=== PATIENT | male | born 1975 | race Caucasian/White ===

== ENCOUNTER → 2016-07-05 | Outpatient (CLI) | payer MEDICARE, OTHER ==
[2016-07-05 12:11] VITALS: BP 121/83; PULSE 104; RESP 16; TEMP 97.9
--- NOTE | 2016-07-05 13:04 | P.PN ---
Progress Note - Text Patient returns for followup for chronic back pain with radiation to both legs. Patient last underwent JAKE in 2014 with good relief Patient continues on fentanyl patch and Percocet medications for pain with good relief, using roughly 2-3 times per day on most days but does not take the medication when he drives. Patient denies adverse drug effects from medications. Today, pt denies new-onset weakness, bowel/bladder incontinence, or any other signs or symptoms of cauda equina syndrome. There are no signs of acute intoxication, and no indications of medication diversion or overuse. In addition to above, 13-point review of systems is also negative for chest pain , shortness of breath, changes in vision, changes in hearing, new onset weakness , abdominal pain, diarrhea, extreme fatigue, malaise, fever, skin changes, homicidal or suicidal ideation, or bowel or bladder incontinence. Vital Signs: Reviewed in EMR Gen: WDWN, AAOx3, NAD HEENT: NCAT, EOMI, hearing grossly normal Pulm: resp unlabored Abd: soft, NT, ND Neck: supple, trachea midline ROM in flexion lumbar spine: reduced due to pain ROM in extension lumbar spine: reduced due to pain Lumbar paravertebral tenderness: + Facet loading: ++ bilateral SI joint tenderness: negative Mauricio's test: negative Straight leg raise: + RLE at 20 degrees Neuro: CN II-XII grossly intact, muscle strength lower extremities reduced bilateral LEs Imaging: Reviewed in EMR Assessment: 1. lumbar disc herniation 2. lumbar radiculopathy 3. lumbar DDD Plan: 1. Explanation: Opioid and psychological risk scores were reviewed. Diagnoses , prognoses, and multiple treatment options including but not limited to physical therapy, interventional therapies, adjuvant medical therapies, narcotic medication therapies, and surgery were discussed with the patient and all questions were answered to the patient's satisfaction. 2. Opioid agreement: Patient has previously signed narcotic agreement, and was orally counseled to not overuse, abuse, divert, or cell medications, and to take them as prescribed by only 1 healthcare provider. The patient was also counseled to store opioid medications in a safe and preferably locked location. Patient was also counseled against driving while using narcotic medications and also to not use alcohol or any illicit or recreational drugs. The patient verbalized understanding that lack of compliance with any of the above and likely result in failure to renew narcotic prescriptions, possible discharge from the clinic, and possible legal ramifications thereafter if indicated. 3. Counseling: The patient was counseled extensively on BODY MASS INDEX, EXERCISE. Specifically, the patient was instructed regarding the importance of weight loss and exercise in the context of both chronic pain and overall health. 4. Procedures: LESI 4-6 weeks (patient is now only on 162 mg of aspirin, no longer on Coumadin for previous history of PE) 5. Consultations: None 6. Investigations: UDS today (last UDS showed fentanyl, negative for oxycodone , patient states that he last used Percocet two days ago) 7. Medications: fentanyl patch, Percocet (reduced to #90), Neurontin x 2 months 8. Disposition: f/u for re-eval two months PQRS measures: 1-Patient's medications are documented in the chart. 2-Tobacco use is negative 3-Patient has not had a pneumococcal vaccine. 4-Advanced care planning discussed, patient unable to give. 5-Opioid contract signed with the patient. 6-Pain positive, follow-up visit or procedure scheduled 7-Patient's blood pressure measured and documented, within normal limits. 8-Patient's weight was measured, and body mass index ABOVE the normal limits, and counseling was done. Patient instructed to follow up with PCP. 9-Patient WAS NOT identified as an unhealthy alcohol user.
== END | disposition home or self-care (01) ==
LOC: PNWHC3 11:52
PROVIDERS: ATTEND Anesthesiology
DX: M51.26 Other intervertebral disc displacement, lumbar region (principal); M54.16 Radiculopathy, lumbar region; M51.36 Other intervertebral disc degeneration, lumbar region; Z79.899 Other long term (current) drug therapy
CPT/HCPCS: 80307; G0463; 80346; 80354; 99211

== ENCOUNTER 2016-08-24 07:42 | Day surgery (SDC) | payer MEDICARE, OTHER ==
[2016-08-22 10:03] VITALS: BMI 26.0
[~2016-08-24 07:42] MED LIST: LACTATED RINGERS 1,000 ML IV SCH
[2016-08-24] MEDS ORDERED: LIDOCAINE 1% 20 ML VIAL (10MG/ML) FOR IV START INTRADERMA ONE (08:00)
[2016-08-24 08:08] VITALS: RESP 18; TEMP 97.7
[2016-08-24] MEDS ORDERED: TRIAMCINOLONE ACETONIDE 40 MG/ML 1 ML VIAL ONE (08:21)
[2016-08-24] MEDS ORDERED: MIDAZOLAM 2 MG/2 ML VIAL ONE (08:21)
[2016-08-24] MEDS ORDERED: IOHEXOL 180 MG/ML 1 ML ML ONE (08:21)
[2016-08-24] MEDS ORDERED: BUPIVACAINE (PF) 0.5% 30 ML VIAL ONE (08:21)
[2016-08-24] MEDS ORDERED: fentaNYL (PF) 50 MCG/ML 2 ML AMP ONE (08:21)
[2016-08-24] MEDS ORDERED: IV FLUID CONTINUATION 1,000 ML IV ONE (08:47)
--- NOTE | 2016-08-24 08:57 | P.PCN ---
Date of Procedure: 08/24/16 Surgeon: Vinny Kraft Pathology: none sent Condition: stable Disposition: PACU Description of Procedure: PREOPERATIVE DIAGNOSIS: 1-Lumbar radiculitis. POSTOPERATIVE DIAGNOSIS: 1-Lumbar radiculitis. PROCEDURE 1. Lumbar epidural steroid injection under fluoroscopic guidance at the L4-L5 level. 2. Lumbar epidurogram. ANESTHESIA: Local with 1% lidocaine; IV sedation with Versed/fentanyl. EBL: Minimal PROCEDURE INDICATION: The patient with low back pain and radiculitis symptoms unresponsive to conservative treatment. Fluoroscopy was used to optimize visualization of the needle placement and to maximize safety. Patient uses only baby aspirin 81 mg twice daily as a blood thinner due to his history of DVT and PE. PROCEDURE DESCRIPTION / TECHNIQUE: The patient was seen and identified in the preoperative area. Risks, benefits, complications, and alternatives were discussed with the patient, including but not limited to bleeding, infection, nerve damage, allergic reactions to medications, and incomplete pain relief. The patient agreed to proceed with the procedure and signed the consent after all questions were answered. IV was started, and vital signs were stable. Patient was taken to the OR and time out was completed to confirm patient position, procedure, laterality of pain, and allergies. The patient was placed in the prone position on procedure table and a pillow was placed under the abdomen to reduce lumbar lordosis. The lumbosacral area was prepped and draped in the usual sterile fashion. Critical pause was taken. Vital signs were closely monitored during the procedure. Conscious sedation was used during the procedure to decrease patients anxiety. Using anterior-posterior fluoroscopy, the L4-L5 interlaminar space was identified and the skin over this site was marked and then infiltrated with 1% lidocaine subcutaneously in a right paramedian fashion. Subsequently, a 20- gauge 3.5" Tuohy epidural needle was inserted and advanced toward the epidural space using the Loss of resistance technique and guided by AP and lateral fluoroscopy. The correct needle position in the epidural space was verified with the injection of 2 mL of the water soluble contrast dye Omnipaque 300 contrast and observing an excellent epidurogram with the epidural spread of the dye, after negative aspiration for blood and CSF and in the absence of paresthesias. Again after negative aspiration, a 8 ml mixture containing 80 mg of Kenalog and 4 ml of preservative free Normal Saline, and 2 ml of preservative free lidocaine 1% solution was injected and a washout of epidurogram was seen. Needle was withdrawn intact, skin was cleansed, and bandages were applied. COMPLICATIONS: None COMMENTS: DISPOSITION / PLANS: The patient was placed in a supine position and transferred to the recovery area in a stable condition for observation. There was no evidence of lower extremity motor or sensory deficit after the procedure. Patient was discharged from the recovery room after meeting discharge criteria. Home discharge instructions were given to the patient by the staff. The patient was reexamined prior to discharge and there were no issues. The patient will schedule a follow up procedure in approximately 4 weeks.
[2016-08-24 09:06] VITALS: BP 107/73; PULSE 62
--- NOTE | 2016-08-24 11:52 | FL ---
EXAMINATION TYPE: FL guided pain mgmt statistic DATE OF EXAM: 08/24/2016 8:42 AM HISTORY: Flouroscopy time 8 seconds of fluoroscopy provided. IMPRESSION: 1. Fluoroscopy time.
== END 2016-08-24 09:23 | disposition home or self-care (01) ==
LOC: ORPAIN 07:42
PROVIDERS: ATTEND Anesthesiology
DX: G89.29 Other chronic pain (principal); M54.16 Radiculopathy, lumbar region; I10 Essential (primary) hypertension; E78.5 Hyperlipidemia, unspecified; Z88.5 Allergy status to narcotic agent; Z79.891 Long term (current) use of opiate analgesic; Z79.82 Long term (current) use of aspirin; Z79.899 Other long term (current) drug therapy
CPT/HCPCS: 62323; 99152; J2250; J3301; Q9965; J3010

== ENCOUNTER → 2016-09-05 | Outpatient (CLI) | payer MEDICARE, OTHER ==
--- NOTE | 2016-09-05 14:03 | US ---
EXAMINATION TYPE: US venous doppler duplex LE RT DATE OF EXAM: 09/05/2016 1:38 PM COMPARISON: Right lower extremity venous ultrasound December 11, 2014 CLINICAL HISTORY: M79.661 PAIN IN RT LOWER LIMB. Right calf pain, no swelling, h/o PE's 2013 SIDE PERFORMED: Right VESSELS IMAGED: External Iliac Vein (EIV) Common Femoral Vein Deep Femoral Vein Greater Saphenous Vein * Femoral Vein Popliteal Vein Small Saphenous Vein * Proximal Calf Veins (* superficial vessels) TECHNOLOGIST IMPRESSION: Right Leg: Appears negative for DVT Satisfactory color flow, phasicity, and compressibility is seen in the right lower extremity in the a misael levels. No significant change from prior. IMPRESSION: No ultrasound evidence for acute DVT in the right lower extremity.
== END ==
LOC: RADUSWWP 12:49
PROVIDERS: ATTEND Internal Medicine
DX: M79.661 Pain in right lower leg (principal)

== ENCOUNTER 2016-09-29 06:07 | Day surgery (SDC) | payer MEDICARE, OTHER ==
[2016-09-28 08:52] VITALS: BMI 25.7
[2016-09-29 06:33] VITALS: TEMP 97.9
[2016-09-29] MEDS: LACTATED RINGERS 1,000 ML IV SCH ×2 (06:33→06:54)
[2016-09-29] MEDS ORDERED: LIDOCAINE 1% 20 ML VIAL (10MG/ML) FOR IV START INTRADERMA ONE (06:37)
[2016-09-29] MEDS ORDERED: TRIAMCINOLONE ACETONIDE 40 MG/ML 1 ML VIAL ONE (06:58)
[2016-09-29] MEDS ORDERED: fentaNYL (PF) 50 MCG/ML 2 ML AMP ONE (06:58)
[2016-09-29] MEDS ORDERED: IOHEXOL 180 MG/ML 1 ML ML ONE (06:58)
[2016-09-29] MEDS ORDERED: MIDAZOLAM 2 MG/2 ML VIAL ONE (06:58)
[2016-09-29 07:28] VITALS: RESP 18
[2016-09-29 07:54] VITALS: BP 121/80; PULSE 63
[2016-09-29] MEDS ORDERED: IV FLUID CONTINUATION 1,000 ML IV ONE (08:00)
--- NOTE | 2016-09-29 09:01 | FL ---
EXAMINATION TYPE: FL guided pain mgmt statistic DATE OF EXAM: 09/29/2016 7:17 AM HISTORY: Flouroscopy time 3 seconds of fluoroscopy provided. IMPRESSION: 1. Fluoroscopy time.
--- NOTE | 2016-09-29 13:51 | P.PCN ---
Date of Procedure: 09/29/16 Procedure(s) Performed: PREOPERATIVE DIAGNOSIS: 1- Lumbar Degenerative Disc Diseases 2-Lumbar herniated disc disease POSTOPERATIVE DIAGNOSIS: 1-Lumber Degenerative Disc Diseases 2-Lumbar herniated disc disease PROCEDURE 1. Lumbar epidural steroid injection under fluoroscopic guidance at the L4-5 level. 2. Lumbar epidurogram. ANESTHESIA: Local with 1% lidocaine 3 ml and IV sedation with Versed 2 mg , and fentanyle 100 Mcg EBL: Minimal PROCEDURE INDICATION: The patient with low back pain and radiculitis symptoms unresponsive to conservative treatment. Fluoroscopy was used to optimize visualization of the needle placement and to maximize safety. PROCEDURE DESCRIPTION / TECHNIQUE: The patient was seen and identified in the preoperative area. Risks, benefits , complications including but not limited to infections ,bleeding ,allergic reaction to the medications ,nerve damage and not complete pain releife , and alternatives were discussed with the patient. The patient agreed to proceed with the procedure and signed the consent. IV was started, and vital signs were stable. Patient was taken to the OR and time out was completed. The patient was placed in the prone position on procedure table and a pillow was placed under the abdomen to reduce lumbar lordosis. The lumbosacral area was prepped and draped in the usual sterile fashion.ere closely monitored during the procedure. Conscious sedation was used during the procedure to decrease patients anxiety. Vital signs was monitered during the entire procedure. Using anterior-posterior fluoroscopy, the L4-5 interlaminar space was identified and the skin over this site was marked and then infiltrated with 1% lidocaine subcutaneously. Subsequently, a 20-gauge Tuohy epidural needle was inserted and advanced toward the epidural space using the ``Loss of resistance technique and guided by AP and lateral fluoroscopy. The correct needle position in the epidural space was verified with the injection of 2 mL of the water soluble contrast dye Omnipaque 180 contrast and observing an excellent epidurogram with the epidural spread of the dye, after negative aspiration for blood and CSF and in the absence of paresthesias. Again after negative aspiration, a 6 ml mixture containing 80 mg of Kenalog and 2 ml of preservative free Normal Saline, and 2 ml of preservative free lidocaine 1% solution was injected and a washout of epidurogram was seen. Needle was withdrawn intact, skin was cleansed, and bandages were applied. COMPLICATIONS: None DISPOSITION / PLANS: The patient was placed in a supine position and transferred to the recovery area in a stable condition for observation. There was no evidence of lower extremity motor or sensory deficit after the procedure. Patient was discharged from the recovery room after meeting discharge criteria. Home discharge instructions were given to the patient by the staff. The patient was reexamined prior to discharge. The patient will schedule a follow up in the clinic in 2-4 weeks.
== END 2016-09-29 08:03 | disposition home or self-care (01) ==
LOC: ORPAIN 06:07
PROVIDERS: ATTEND Specialist
DX: M51.16 Intervertebral disc disorders with radiculopathy, lumbar region (principal); Z88.8 Allergy status to other drugs, medicaments and biological substances
CPT/HCPCS: 62323; J2250; J3301; Q9965; J3010

== ENCOUNTER 2016-10-27 07:17 | Day surgery (SDC) | payer MEDICARE, OTHER ==
[2016-10-26 10:07] VITALS: BMI 24.8
[2016-10-27 08:19] VITALS: RESP 16; TEMP 98
[2016-10-27] MEDS ORDERED: LIDOCAINE 1% 20 ML VIAL (10MG/ML) FOR IV START SQ ONE (08:21)
[2016-10-27] MEDS ORDERED: IOHEXOL 180 MG/ML 1 ML ML ONE (09:05)
[2016-10-27] MEDS ORDERED: fentaNYL (PF) 50 MCG/ML 2 ML AMP ONE (09:05)
[2016-10-27] MEDS ORDERED: MIDAZOLAM 2 MG/2 ML VIAL ONE (09:05)
[2016-10-27] MEDS ORDERED: DEXAMETHASONE SOD PHOS (MDV) 100 MG/10 ML VIAL ONE (09:05)
--- NOTE | 2016-10-27 09:23 | P.PCN ---
Date of Procedure: 10/27/16 Procedure(s) Performed: PREOPERATIVE DIAGNOSIS: 1- Lumbar Degenerative Disc Diseases 2-Lumbar herniated disc disease POSTOPERATIVE DIAGNOSIS: Same as preoperative diagnoses PROCEDURE 1. Lumbar epidural steroid injection under fluoroscopic guidance at the L4-5 level. 2. Lumbar epidurogram. ANESTHESIA: Local with 1% lidocaine 3 ml and IV sedation with Versed 2 mg , and fentanyle 100 Mcg EBL: Minimal PROCEDURE INDICATION: The patient with low back pain and radiculitis symptoms unresponsive to conservative treatment. Fluoroscopy was used to optimize visualization of the needle placement and to maximize safety. PROCEDURE DESCRIPTION / TECHNIQUE: The patient was seen and identified in the preoperative area. Risks, benefits , complications including but not limited to infections ,bleeding ,allergic reaction to the medications ,nerve damage and not complete pain releife , and alternatives were discussed with the patient. The patient agreed to proceed with the procedure and signed the consent. IV was started, and vital signs were stable. Patient was taken to the OR and time out was completed. The patient was placed in the prone position on procedure table and a pillow was placed under the abdomen to reduce lumbar lordosis. The lumbosacral area was prepped and draped in the usual sterile fashion.ere closely monitored during the procedure. Conscious sedation was used during the procedure to decrease patients anxiety. Vital signs was monitered during the entire procedure. Using anterior-posterior fluoroscopy, the L4-5 interlaminar space was identified and the skin over this site was marked and then infiltrated with 1% lidocaine subcutaneously. Subsequently, a 20-gauge Tuohy epidural needle was inserted and advanced toward the epidural space using the ``Loss of resistance technique and guided by AP and lateral fluoroscopy. The correct needle position in the epidural space was verified with the injection of 2 mL of the water soluble contrast dye Omnipaque 180 contrast and observing an excellent epidurogram with the epidural spread of the dye, after negative aspiration for blood and CSF and in the absence of paresthesias. Again after negative aspiration, a 6 ml mixture containing 80 mg of Kenalog and 2 ml of preservative free Normal Saline, and 2 ml of preservative free lidocaine 1% solution was injected and a washout of epidurogram was seen. Needle was withdrawn intact, skin was cleansed, and bandages were applied. COMPLICATIONS: None DISPOSITION / PLANS: The patient was placed in a supine position and transferred to the recovery area in a stable condition for observation. There was no evidence of lower extremity motor or sensory deficit after the procedure. Patient was discharged from the recovery room after meeting discharge criteria. Home discharge instructions were given to the patient by the staff. The patient was reexamined prior to discharge. The patient will schedule a follow up in the clinic in 2-4 weeks.
[2016-10-27] MEDS ORDERED: IV FLUID CONTINUATION 1,000 ML IV ONE (09:28)
[2016-10-27 09:46] VITALS: BP 118/77; PULSE 76
--- NOTE | 2016-10-27 10:06 | FL ---
EXAMINATION TYPE: FL guided pain mgmt statistic DATE OF EXAM: 10/27/2016 9:24 AM HISTORY: Flouroscopy time 3 seconds of fluoroscopy provided. IMPRESSION: 1. Fluoroscopy time.
== END 2016-10-27 09:59 | disposition home or self-care (01) ==
LOC: ORPAIN 07:17
PROVIDERS: ATTEND Specialist
DX: M51.16 Intervertebral disc disorders with radiculopathy, lumbar region (principal)
CPT/HCPCS: 62323; 99152; J2250; Q9965; J3010; J1100

== ENCOUNTER → 2016-11-23 | Outpatient (CLI) | payer MEDICARE, OTHER ==
[2016-11-23 15:10] VITALS: BP 127/93; PULSE 85; RESP 16; TEMP 98.9
--- NOTE | 2016-11-25 10:49 | P.PN ---
Subjective This is follow-up visit for this patient with a history of severe and chronic low back pain secondary to lumbar degenerative disc diseases , lumbar herniated disc disease, we have done interventional pain management injection,, status post lumbar epidural steroid injections 3, and he reports his pain improved significantly, also patient had the bilateral knee pain status post multiple surgical interventions on knee joints , the quadriceps muscle repair , and currently he is taking pain medication 1-Neurontin 800 mg 3 times a day 2-fentanyl patch 50 g every 72 hours 3-Percocet 10/325 every 6-8 hours. 4-Colace 100 mg twice a day Patient denies any side effects of the medication, denies excessive drowsiness or sleepiness, denies suicidal ideation, and reports that the current pain medication is helping To control the pain and improve activity of daily living Patient denies any motor or sensory deficit , patient denies any fever or night sweats, denies any change in the bowel movements or urination Physical Examinations : 1-Constitutiona : Cooperative , not in acute distress . 2-HEENT : nech ; supple , no Lymphadenopathy , no Thyromegaly , normal thyroid size . eyes : no ptosis , no icterus, no photophobia . ENT : normal of hearing , normal oropharynx , no Thrush . 3- Respiratory : Chest clear to auscultations Bilaterally , no wheezing , no Rhonchi . 4- Cardiovascular : regular rate and rhythem , S1 , S2 , no S3 , no S4. 5- Gastrointestinal : abdomen soft no tenderness , bowel sounds positive all four quadrents , no organomegally . 6- Genitourinary : Defferred . 7- neurologic : Cranial nerve II to XII intact , no focal neurological deffecit . 8-psychatric : alert , oriented X 3 , appropriate affect , intact judgment and insight . 9-Lymphatic : no Lymphadenopathy . 10- musculoskeltal : exams of the Lumber spine = motor strength lower extremities ,thigh and legs .5/5 deep tendon reflexes : normal Knee Jerk , normal ankle Jerk . lumber facet Loading Test positive strait leg raising test negative Fabere test negative Range of motion: Range of motion in flexion of the lumbar spine 30 degrees Range of motion range of motion of extension of the lumbar spine 10 Exams of the knee= flexion and extension of the right knee associated with severe pain Assessment and plan = Chronic low back pain secondary to lumbar degenerative disc disease , lumbar herniated disc disease chronic and current use of high-risk medication (Opioids). The patient was counseled about risk of opioid use, psychological risk associated with opioids and was orally counseled to not overuse , divert,or sell dictations to take medications as prescribed only , and to restore medication in safe location , and the patient counseled against driving while using narcotic medications, and also not to use alcohol or any illicit recreational drugs, the patient's verbalized understanding that the lack of compliance will result in failure to renew narcotic prescription and possible discharge from the clinic - diagnoses, prognosis, and treatment options including but not limited to physical therapy, surgical interventions, interventional therapies , and medication management including narcotics and adjuvant medication were discussed with the patient and all the questions answered Prescription refill for Neurontin 800 mg 3 times a day dispense 90 with 1 refill, fentanyl patch 50 g every 72 hours dispense 10 with one refill, Percocet 10/325 every 6-8 hours dispensed 90 with 1 refill, Colace 100 mg twice a day dispense 60 with 1 refill follow up in 2 months Objective - Vital Signs Vital signs: Vital Signs Temp 98.9 F 11/23/16 15:00 Pulse 85 11/23/16 15:00 Resp 16 11/23/16 15:00 BP 127/93 11/23/16 15:00 Pulse Ox 100 11/23/16 15:00
== END ==
LOC: PNWHC3 13:52
PROVIDERS: ATTEND Specialist
DX: M51.26 Other intervertebral disc displacement, lumbar region (principal); M51.36 Other intervertebral disc degeneration, lumbar region; G89.29 Other chronic pain; Z79.891 Long term (current) use of opiate analgesic
CPT/HCPCS: 99211

== ENCOUNTER 2016-12-10 08:33 | Emergency (ER) | payer MEDICARE ==
[2016-12-10 08:39] VITALS: BP 135/86; RESP 18; TEMP 97
--- NOTE | 2016-12-10 09:09 | ED ---
General Adult HPI - General Chief complaint: Allergic Reaction Stated complaint: Allergic Reaction, SOB Time Seen by Provider: 12/10/16 08:58 Source: patient, RN notes reviewed Mode of arrival: wheelchair Limitations: no limitations - History of Present Illness Initial comments: 41-year-old male present emergency Department chief complaint rash. Patient states he has been gone for last 10 days. Patient states he started new medication called Crestor. Patient states that this started shortly after starting the medication. Patient states that he has been taking Benadryl which seems to help. Patient states that her itching started painful and states that he pops up the different areas of his body welts. Patient states is not discussed this with his primary care physician. Patient denies any other new medications. Denies any tick bites or any history of chronic illnesses such as syphilis. Patient states never anything like this in the past and denies any other complaints. Denies fever or chills. - Related Data Home Medications Medication Instructions Recorded Confirmed Diazepam [Valium] 10 mg PO HS 07/02/14 11/23/16 Aspirin 162 mg PO DAILY 05/13/15 11/23/16 L.acidoph,Paracasei, B.lactis 1 tab PO DAILY 08/04/15 11/23/16 [Probiotic] Multivitamin [Men's Multi-Vitamin] 1 tab PO DAILY 08/04/15 11/23/16 Diazepam [Valium] 5 mg PO QAM 08/21/15 11/23/16 Verapamil HCl [Verapamil ER] 120 mg PO DAILY 08/21/15 11/23/16 Atorvastatin [Lipitor] 40 mg PO HS 10/27/15 11/23/16 Dicyclomine HCl 20 mg PO TID 08/22/16 11/23/16 Rosuvastatin Calcium 20 mg PO DAILY 11/23/16 11/23/16 Previous Rx's Medication Instructions Recorded Docusate [Colace] 100 mg PO BID #60 11/23/16 Gabapentin [Neurontin] 800 mg PO TID #90 tablet 11/23/16 fentaNYL 50MCG/HR PATCH [Duragesic 50 mcg TRANSDERM Q72H #10 patch 11/23/16 50MCG/HR] fentaNYL 50MCG/HR PATCH [Duragesic 50 mcg TRANSDERM Q72H #10 patch 11/23/16 50MCG/HR] oxyCODONE-APAP 10-325MG [Percocet 1 tab PO Q6HR PRN #90 tab 11/23/16 10-325 mg] oxyCODONE-APAP 10-325MG [Percocet 1 tab PO TID #90 11/23/16 10-325 mg] Allergies Allergy/AdvReac Type Severity Reaction Status Date / Time tramadol Allergy UPSET Verified 12/10/16 08:39 STOMACH, GAS PER PT Review of Systems ROS Statement: Those systems with pertinent positive or pertinent negative responses have been documented in the HPI. ROS Other: All systems not noted in ROS Statement are negative. Past Medical History Past Medical History: GERD/Reflux, Hyperlipidemia, Osteoarthritis (OA), Pulmonary Embolus (PE) Additional Past Medical History / Comment(s): Irregular heart beat, migraines, IBS, pancreatitis, chronic low back pain, lumbar herniated discs, spinal stenosis, DDD, RUPTURED RT LEG QUADRICEP TENDON BY KNEE, hx hiatal hernia, History of Any Multi-Drug Resistant Organisms: None Reported Past Surgical History: Cholecystectomy, Hernia Repair, Orthopedic Surgery Additional Past Surgical History / Comment(s): Rt quadricep tendon surgeries x 2. raffi fundloplication x 2, ERCP, rt arm surgery Past Anesthesia/Blood Transfusion Reactions: No Reported Reaction Past Psychological History: No Psychological Hx Reported Smoking Status: Never smoker Past Alcohol Use History: Rare Past Drug Use History: None Reported - Past Family History Mother Family Medical History: Cancer Additional Family Medical History / Comment(s): . Father Family Medical History: Myocardial Infarction ([place]) Additional Family Medical History / Comment(s): gastric issues, heart issues General Exam Limitations: no limitations General appearance: alert, in no apparent distress ENT exam: Present: normal exam, normal oropharynx, mucous membranes moist Neck exam: Present: normal inspection, full ROM. Absent: tenderness, meningismus, lymphadenopathy Respiratory exam: Present: normal lung sounds bilaterally. Absent: respiratory distress, wheezes, rales, rhonchi, stridor Cardiovascular Exam: Present: regular rate, normal rhythm, normal heart sounds. Absent: systolic murmur, diastolic murmur, rubs, gallop, clicks Skin exam: Present: rash (Erythematous welts, wheals noted on her abdomen, arms and legs and left hand.) Course Vital Signs 12/10/16 08:34 Temperature 97.0 F L Pulse Rate 111 H Respiratory 18 Rate Blood Pressure 135/86 O2 Sat by Pulse 100 Oximetry Medical Decision Making - Medical Decision Making 41-year-old male presented for rash. This rash may be related to his medication though does not give a classic presentation of urticaria. No new symptoms sees had with a rash after starting medication. Patient will be discontinued on medication for now if symptoms do not improve he'll follow-up with dermatology as provided for further evaluation. Patient be continued on Benadryl. Disposition Clinical Impression: Rash Disposition: HOME SELF-CARE Condition: Stable Instructions: Acute Rash (ED) Additional Instructions: Continue Benadryl as directed. Discontinue Crestor. Please return to the Emergency Department if symptoms worsen or any other concerns. Referrals: Vinay Hyman MD [Primary Care Provider] - 1-2 days Kelley Grossman MD [STAFF PHYSICIAN] - 1-2 days Time of Disposition: 09:08
[2016-12-10 09:18] VITALS: PULSE 94
== END 2016-12-10 09:18 | disposition home or self-care (01) ==
LOC: EC 08:33
DX: R21 Rash and other nonspecific skin eruption (principal); M19.90 Unspecified osteoarthritis, unspecified site; E78.5 Hyperlipidemia, unspecified; Z88.6 Allergy status to analgesic agent; Z79.82 Long term (current) use of aspirin; Z79.899 Other long term (current) drug therapy
CPT/HCPCS: 99283

== ENCOUNTER → 2017-01-18 | Outpatient (CLI) | payer MEDICARE ==
[2017-01-18 12:09] VITALS: BP 124/75; PULSE 71; RESP 18; TEMP 98
--- NOTE | 2017-01-18 12:30 | P.PN ---
Progress Note - Text This is a 41-year-old gentleman with history of lower back pain with radiation to the right lower extremity down to the knee level. The patient denies any bowel or bladder dysfunction. he says that he feels slight weakness in the right lower extremity. His pain has been controlled with a combination of intervention pain procedures and analgesics. He is chronic opioid dependent and he uses fentanyl patch 50 mics an hour every 72 hours plus Percocet 10 mg 3 times a day. We have weaned him down from 4 pills a day of Percocet to 3 pills a day recently. He is alert oriented 3 in no apparent distress. He does not show any drug- seeking behavior. He denies any side effects to the above-mentioned medications. He is unemployed on social security disability. Today I will give him prescription for 2 months of fentanyl and Percocet. I think we should try to wean him further down his opioids and we will do this in a gradual and slow way.
== END | disposition home or self-care (01) ==
LOC: PNWHC3 11:42
PROVIDERS: ATTEND Anesthesiology
DX: M54.5 Low back pain (principal)
CPT/HCPCS: 99211

== ENCOUNTER → 2017-03-15 | Outpatient (CLI) | payer MEDICARE ==
[2017-03-15 13:11] VITALS: BP 108/81; PULSE 80; RESP 18; TEMP 98.7
--- NOTE | 2017-03-15 13:45 | P.PN ---
Progress Note - Text Patient returns for followup for chronic back pain with radiation to both legs. Patient last underwent JAKE in 2014 with good relief. Patient continues on fentanyl patch and Percocet medications for pain with good relief, using roughly 2-3 times per day on most days but does not take the medication when he drives. Patient denies adverse drug effects from medications. Today, pt denies new-onset weakness, bowel/bladder incontinence, or any other signs or symptoms of cauda equina syndrome. There are no signs of acute intoxication, and no indications of medication diversion or overuse. In addition to above, 13-point review of systems is also negative for chest pain , shortness of breath, changes in vision, changes in hearing, new onset weakness , abdominal pain, diarrhea, extreme fatigue, malaise, fever, skin changes, homicidal or suicidal ideation, or bowel or bladder incontinence. Vital Signs: Reviewed in EMR Gen: WDWN, AAOx3, NAD HEENT: NCAT, EOMI, hearing grossly normal Pulm: resp unlabored Abd: soft, NT, ND Neck: supple, trachea midline ROM in flexion lumbar spine: reduced due to pain ROM in extension lumbar spine: reduced due to pain Lumbar paravertebral tenderness: + Facet loading: ++ bilateral SI joint tenderness: negative Mauricio's test: + RLE Straight leg raise: neg Neuro: CN II-XII grossly intact, muscle strength lower extremities reduced bilateral LEs Imaging: Reviewed in EMR Assessment: 1. lumbar disc herniation 2. lumbar radiculopathy 3. lumbar DDD Plan: 1. Explanation: Opioid and psychological risk scores were reviewed. Diagnoses , prognoses, and multiple treatment options including but not limited to physical therapy, interventional therapies, adjuvant medical therapies, narcotic medication therapies, and surgery were discussed with the patient and all questions were answered to the patient's satisfaction. 2. Opioid agreement: Patient has previously signed narcotic agreement, and was orally counseled to not overuse, abuse, divert, or cell medications, and to take them as prescribed by only 1 healthcare provider. The patient was also counseled to store opioid medications in a safe and preferably locked location. Patient was also counseled against driving while using narcotic medications and also to not use alcohol or any illicit or recreational drugs. The patient verbalized understanding that lack of compliance with any of the above and likely result in failure to renew narcotic prescriptions, possible discharge from the clinic, and possible legal ramifications thereafter if indicated. 3. Counseling: The patient was counseled extensively on BODY MASS INDEX, EXERCISE. Specifically, the patient was instructed regarding the importance of weight loss and exercise in the context of both chronic pain and overall health. 4. Procedures: LESI 4-6 weeks (patient is now only on 162 mg of aspirin, no longer on Coumadin for previous history of PE) 5. Consultations: None 6. Investigations: UDS today (last UDS showed fentanyl, negative for oxycodone ; patient states that he used Percocet this morning) 7. Medications: fentanyl patch 50 mcg/hr q72 #10, Percocet 10/325 (reduced to # 90), Neurontin x 2 months. UDS in 04/2016 and in 06/2016 positive for fentanyl, neg for oxycodone. 8. Disposition: f/u for re-eval 4 weeks; please eval UDS at that time. PQRS measures: 1-Patient's medications are documented in the chart. 2-Tobacco use is negative 3-Patient has not had a pneumococcal vaccine. 4-Advanced care planning discussed, patient unable to give. 5-Opioid contract signed with the patient. 6-Pain positive, follow-up visit or procedure scheduled 7-Patient's blood pressure measured and documented, within normal limits. 8-Patient's weight was measured, and body mass index ABOVE the normal limits, and counseling was done. Patient instructed to follow up with PCP. 9-Patient WAS NOT identified as an unhealthy alcohol user.
[2017-03-16 14:14] LABS: Mis test requested (Non-blood) HEROIN
== END | disposition home or self-care (01) ==
LOC: PNWHC3 12:37
PROVIDERS: ATTEND Anesthesiology
DX: M51.16 Intervertebral disc disorders with radiculopathy, lumbar region (principal)
CPT/HCPCS: 80356; 99211

== ENCOUNTER 2017-07-12 06:15 | Day surgery (SDC) | payer MEDICARE ==
[2017-07-07 08:17] VITALS: BMI 23.4
[2017-07-12 06:57] VITALS: RESP 16; TEMP 98.1
[2017-07-12] MEDS ORDERED: LACTATED RINGERS 1,000 ML IV ONE (07:07)
[2017-07-12] MEDS ORDERED: LIDOCAINE 1% 20 ML VIAL (10MG/ML) FOR IV START INTRADERMA ONE (07:08)
[2017-07-12] MEDS ORDERED: LACTATED RINGERS 1,000 ML IV SCH (07:15)
[2017-07-12] MEDS ORDERED: methylPREDNISolone ACETATE 40 MG/ML 1 ML VIAL ONE (07:17)
--- NOTE | 2017-07-12 07:29 | P.PCN ---
Date of Procedure: 07/12/17 Surgeon: Vinny Kraft Pathology: none sent Condition: stable Disposition: PACU Description of Procedure: PREOPERATIVE DIAGNOSIS: 1-Lumbar radiculitis. POSTOPERATIVE DIAGNOSIS: 1-Lumbar radiculitis. PROCEDURE 1. Lumbar epidural steroid injection under fluoroscopic guidance at the L4-L5 level. 2. Lumbar epidurogram. ANESTHESIA: Local with 1% lidocaine; IV sedation with Versed/fentanyl. EBL: Minimal PROCEDURE INDICATION: The patient with low back pain and radiculitis symptoms unresponsive to conservative treatment who has responded well to LESIs in the past. Fluoroscopy was used to optimize visualization of the needle placement and to maximize safety. PROCEDURE DESCRIPTION / TECHNIQUE: The patient was seen and identified in the preoperative area. Risks, benefits, complications, and alternatives were discussed with the patient, including but not limited to bleeding, infection, nerve damage, allergic reactions to medications, and incomplete pain relief. The patient agreed to proceed with the procedure and signed the consent after all questions were answered. IV was started, and vital signs were stable. Patient was taken to the OR and time out was completed to confirm patient position, procedure, laterality of pain, and allergies. The patient was placed in the prone position on procedure table and a pillow was placed under the abdomen to reduce lumbar lordosis. The lumbosacral area was prepped and draped in the usual sterile fashion. Critical pause was taken. Vital signs were closely monitored during the procedure. Conscious sedation was used during the procedure to decrease patients anxiety. Using anterior-posterior fluoroscopy, the L4-L5 interlaminar space was identified and the skin over this site was marked and then infiltrated with 1% lidocaine subcutaneously in a right paramedian fashion. Subsequently, a 20- gauge 3.5-inch Tuohy epidural needle was inserted and advanced toward the epidural space using the Loss of resistance technique and guided by AP and lateral fluoroscopy. The correct needle position in the epidural space was verified with the injection of 2 mL of the water soluble contrast dye Omnipaque 300 contrast and observing an excellent epidurogram with the epidural spread of the dye, after negative aspiration for blood and CSF and in the absence of paresthesias. Again after negative aspiration, a 6 ml mixture containing 20 mg of PF Decadron and 2 ml of preservative free Normal Saline, and 2 ml of preservative free lidocaine 1% solution was injected and a washout of epidurogram was seen. Needle was withdrawn intact, skin was cleansed, and bandages were applied. COMPLICATIONS: None COMMENTS: DISPOSITION / PLANS: The patient was placed in a supine position and transferred to the recovery area in a stable condition for observation. There was no evidence of lower extremity motor or sensory deficit after the procedure. Patient was discharged from the recovery room after meeting discharge criteria. Home discharge instructions were given to the patient by the staff. The patient was reexamined prior to discharge and there were no issues. The patient will schedule a repeat procedure in 3-4 weeks.
[2017-07-12] MEDS ORDERED: IV FLUID CONTINUATION 1,000 ML IV ONE ×2 (07:32)
[2017-07-12 07:49] VITALS: BP 109/75; PULSE 55
--- NOTE | 2017-07-12 09:56 | FL ---
Fluoroscopy HISTORY: Pain 12 seconds fluoroscopy time supplied to the referring clinician. 5 intraoperative C-arm images docum ent the procedure. See dictated report from anesthesia.
== END 2017-07-12 08:05 | disposition home or self-care (01) ==
LOC: ORPAIN 06:15
PROVIDERS: ATTEND Anesthesiology
DX: M54.16 Radiculopathy, lumbar region (principal); F41.9 Anxiety disorder, unspecified; Z88.5 Allergy status to narcotic agent
CPT/HCPCS: 62323; J2250; Q9965; J3010

== ENCOUNTER 2017-08-08 09:30 | Day surgery (SDC) | payer MEDICARE ==
[2017-08-02 16:49] VITALS: BMI 23.8
[~2017-08-08 09:30] MED LIST changes: +LACTATED RINGERS 1,000 ML IV ONE; -LACTATED RINGERS 1,000 ML IV SCH
[2017-08-08 11:12] VITALS: TEMP 98.1
[2017-08-08] MEDS ORDERED: LIDOCAINE 1% 20 ML VIAL (10MG/ML) FOR IV START INTRADERMA ONE (11:12)
--- NOTE | 2017-08-08 11:34 | P.PCN ---
Date of Procedure: 08/08/17 Procedure(s) Performed: PREOPERATIVE DIAGNOSIS: 1- Lumbar Degenerative Disc Diseases 2-Lumbar herniated disc disease. POSTOPERATIVE DIAGNOSIS: 1-Lumber Degenerative Disc Diseases 2-Lumbar herniated disc disease. PROCEDURE 1. Lumbar epidural steroid injection under fluoroscopic guidance at the L4-5 level. 2. Lumbar epidurogram. ANESTHESIA: Local with 1% lidocaine 3 ml and , moderate sedation with intravenous Versed 2 mg ,and fentanyle 100 Mcg EBL: Minimal PROCEDURE INDICATION: The patient with low back pain and radiculitis symptoms unresponsive to conservative treatment. Fluoroscopy was used to optimize visualization of the needle placement and to maximize safety. PROCEDURE DESCRIPTION / TECHNIQUE: The patient was seen and identified in the preoperative area. Risks, benefits , complications including but not limited to infections ,bleeding ,allergic reaction to the medications ,nerve damage and not complete pain releife , and alternatives were discussed with the patient. The patient agreed to proceed with the procedure and signed the consent. IV was started, and vital signs were stable. Patient was taken to the OR and time out was completed. The patient was placed in the prone position on procedure table and a pillow was placed under the abdomen to reduce lumbar lordosis. The lumbosacral area was prepped and draped in the usual sterile fashion.ere closely monitored during the procedure. Conscious sedation was used during the procedure to decrease patients anxiety. Vital signs was monitered during the entire procedure. Using anterior-posterior fluoroscopy, the L4-5 interlaminar space was identified and the skin over this site was marked and then infiltrated with 1% lidocaine subcutaneously. Subsequently, a 20-gauge Tuohy epidural needle was inserted and advanced toward the epidural space using the ``Loss of resistance technique and guided by AP and lateral fluoroscopy. The correct needle position in the epidural space was verified with the injection of 2 mL of the water soluble contrast dye Omnipaque 180 contrast and observing an excellent epidurogram with the epidural spread of the dye, after negative aspiration for blood and CSF and in the absence of paresthesias. Again after negative aspiration, a 6 ml mixture containing 80 mg depomedrol , and 2 ml of preservative free Normal Saline, and 2 ml of preservative free lidocaine 1% solution was injected and a washout of epidurogram was seen. Needle was withdrawn intact, skin was cleansed, and bandages were applied. COMPLICATIONS: None DISPOSITION / PLANS: The patient was placed in a supine position and transferred to the recovery area in a stable condition for observation. There was no evidence of lower extremity motor or sensory deficit after the procedure. Patient was discharged from the recovery room after meeting discharge criteria. Home discharge instructions were given to the patient by the staff. The patient was reexamined prior to discharge. The patient will schedule a follow up in the clinic in 8 weeks. Patient given prescription refill for fentanyl patch 50 g every 72 hours dispense 10 with one refill, Percocet 10/325-6 hours dispense 90 with 1 refill, and Neurontin 800 mg 3 times a day dispense 90 with 1 refill
[2017-08-08 12:02] VITALS: BP 114/78; PULSE 68; RESP 16
--- NOTE | 2017-08-08 13:06 | FL ---
Fluoroscopy HISTORY: Pain 1 seconds fluoroscopy time supplied to the referring clinician. 1 intraoperative C-arm images docume nt the procedure. See dictated report from anesthesia.
== END 2017-08-08 12:17 | disposition home or self-care (01) ==
LOC: ORPAIN 09:30
PROVIDERS: ATTEND Specialist
DX: M51.16 Intervertebral disc disorders with radiculopathy, lumbar region (principal); Z86.711 Personal history of pulmonary embolism; Z88.5 Allergy status to narcotic agent
CPT/HCPCS: 62323; J2250; J1030; Q9965; J3010

== ENCOUNTER → 2017-10-03 | Outpatient (CLI) | payer MEDICARE ==
[2017-10-03 14:30] VITALS: BP 113/65; PULSE 77; RESP 20
--- NOTE | 2017-10-03 14:40 | P.PN ---
Progress Note - Text Progress Note Date: 10/03/17 Patient returns for followup for chronic back pain with radiation to both legs. Patient last underwent LESI x 1 in July with good relief for 2-3 weeks. Patient continues on fentanyl patch and Percocet medications for pain with good relief, using roughly 2-3 times per day on most days but does not take Percocet when he drives. Patient denies adverse drug effects from medications. Today, pt denies new-onset weakness, bowel/bladder incontinence, or any other signs or symptoms of cauda equina syndrome. There are no signs of acute intoxication, and no indications of medication diversion or overuse. In addition to above, 13-point review of systems is also negative for chest pain , shortness of breath, changes in vision, changes in hearing, new onset weakness , abdominal pain, diarrhea, extreme fatigue, malaise, fever, skin changes, homicidal or suicidal ideation, or bowel or bladder incontinence. Vital Signs: Reviewed in EMR Gen: WDWN, AAOx3, NAD HEENT: NCAT, EOMI, hearing grossly normal Pulm: resp unlabored Abd: soft, NT, ND Neck: supple, trachea midline ROM in flexion lumbar spine: reduced due to pain ROM in extension lumbar spine: reduced due to pain Lumbar paravertebral tenderness: + bilateral Facet loading: ++ bilateral, R > L SI joint tenderness: negative Mauricio's test: + R side > L side Straight leg raise: neg Neuro: CN II-XII grossly intact, muscle strength lower extremities reduced bilateral LEs Imaging: Reviewed in EMR Assessment: 1. lumbar disc herniation 2. lumbar radiculopathy 3. lumbar DDD Plan: 1. Explanation: Opioid and psychological risk scores were reviewed. Diagnoses , prognoses, and multiple treatment options including but not limited to physical therapy, interventional therapies, adjuvant medical therapies, narcotic medication therapies, and surgery were discussed with the patient and all questions were answered to the patient's satisfaction. 2. Opioid agreement: Patient has previously signed narcotic agreement, and was orally counseled to not overuse, abuse, divert, or cell medications, and to take them as prescribed by only 1 healthcare provider. The patient was also counseled to store opioid medications in a safe and preferably locked location. Patient was also counseled against driving while using narcotic medications and also to not use alcohol or any illicit or recreational drugs. The patient verbalized understanding that lack of compliance with any of the above and likely result in failure to renew narcotic prescriptions, possible discharge from the clinic, and possible legal ramifications thereafter if indicated. 3. Counseling: The patient was counseled extensively on BODY MASS INDEX, EXERCISE. Specifically, the patient was instructed regarding the importance of weight loss and exercise in the context of both chronic pain and overall health. 4. Procedures: none for now 5. Consultations: None 6. Investigations: UDS appropriate, MAPS queried and appropriate, Valium noted to be prescribed from Dr. Hyman 7. Medications: fentanyl patch 50 mcg/hr q72 #10, Percocet 10/325 (reduced to # 90), Neurontin all with one refill, Neurontin refilled x 3 months 8. MME/day: 165. Patient has been stable on this dose for some time. He was again warned regarding the synergistic effects of benzodiazepines and opioids in terms of sedation, nausea, and respiratory depression possibly resulting in . The patient verbalized understanding and acceptance of these risks. Patient states that he takes Valium for GI spasms and what sounds like gastroparesis, for which he is treated by Dr. Gordon. It is probably best and safest for this patient on high dose opioids to not also be on benzos concurrently if possible; we will send documentation to Dr. Gordon and Dr. Hyman and ask them to investigate if there are other options for his gastroparesis other than benzos, as I am concerned about possible oversedation and respiratory depression. 8. Disposition: f/u for re-eval in 8 weeks PQRS measures: 1-Patient's medications are documented in the chart. 2-Tobacco use is negative 3-Patient has not had a pneumococcal vaccine. 4-Advanced care planning discussed, patient unable to give. 5-Opioid contract signed with the patient. 6-Pain positive, follow-up visit or procedure scheduled 7-Patient's blood pressure measured and documented, within normal limits. 8-Patient's weight was measured, and body mass index ABOVE the normal limits, and counseling was done. Patient instructed to follow up with PCP. 9-Patient WAS NOT identified as an unhealthy alcohol user.
== END | disposition home or self-care (01) ==
LOC: PNWHC3 14:06
PROVIDERS: ATTEND Anesthesiology
DX: G89.29 Other chronic pain (principal); M54.9 Dorsalgia, unspecified; M51.16 Intervertebral disc disorders with radiculopathy, lumbar region; Z79.891 Long term (current) use of opiate analgesic
CPT/HCPCS: 99211

== ENCOUNTER → 2017-11-03 | Outpatient (CLI) | payer MEDICARE ==
--- NOTE | 2017-11-03 15:51 | US ---
EXAMINATION TYPE: US thyroid st tissue head/neck DATE OF EXAM: 11/03/2017 COMPARISON: US CLINICAL HISTORY: R94.6 ABN THYROID LABS. Recent abnormal labs GLAND SIZE: Right Lobe: 3.9 x 1.4 x 1.8 cm Overall Parenchyma: homogeneous Left Lobe: 4.2 x 1.3 x 1.2 cm Overall Parenchyma: homogeneous Isthmus Thickness: 0.4 cm Bilateral neck scanned, no evidence of lymphadenopathy. No evidence of nodules bilaterally. IMPRESSION: No sonographic evidence of thyromegaly, discrete nodule, or hypervascularity.
== END | disposition home or self-care (01) ==
LOC: RADUSWWP 15:24
PROVIDERS: ATTEND Internal Medicine
DX: R94.6 Abnormal results of thyroid function studies (principal)
CPT/HCPCS: 76536

== ENCOUNTER → 2017-11-28 | Outpatient (CLI) | payer MEDICARE ==
[2017-11-28 13:39] VITALS: BP 114/81; PULSE 87; RESP 16
--- NOTE | 2017-11-28 13:55 | P.PN ---
Progress Note - Text Progress Note Date: 11/28/17 Patient returns for followup for chronic back pain with radiation to both legs. Patient last underwent LESI x 1 in July with good relief for 2-3 weeks but states that he is able to do yardwork without substantial pain at this time. Patient continues on fentanyl patch and Percocet medications for pain with good relief, using roughly 2-3 times per day on most days but does not take Percocet when he drives. Patient denies adverse drug effects from medications. Today, pt denies new-onset weakness, bowel/bladder incontinence, or any other signs or symptoms of cauda equina syndrome. There are no signs of acute intoxication, and no indications of medication diversion or overuse. In addition to above, 13-point review of systems is also negative for chest pain , shortness of breath, changes in vision, changes in hearing, new onset weakness , abdominal pain, diarrhea, extreme fatigue, malaise, fever, skin changes, homicidal or suicidal ideation, or bowel or bladder incontinence. Vital Signs: Reviewed in EMR Gen: WDWN, AAOx3, NAD HEENT: NCAT, EOMI, hearing grossly normal Pulm: resp unlabored Abd: soft, NT, ND Neck: supple, trachea midline ROM in flexion lumbar spine: reduced due to pain ROM in extension lumbar spine: reduced due to pain Lumbar paravertebral tenderness: + bilateral Facet loading: ++ bilateral, R > L SI joint tenderness: negative Mauricio's test: + bilateral, R > L Straight leg raise: neg Imaging: Reviewed in EMR Assessment: 1. lumbar disc herniation 2. lumbar radiculopathy 3. lumbar DDD Plan: 1. Explanation: Opioid and psychological risk scores were reviewed. Diagnoses , prognoses, and multiple treatment options including but not limited to physical therapy, interventional therapies, adjuvant medical therapies, narcotic medication therapies, and surgery were discussed with the patient and all questions were answered to the patient's satisfaction. 2. Opioid agreement: Patient has previously signed narcotic agreement, and was orally counseled to not overuse, abuse, divert, or cell medications, and to take them as prescribed by only 1 healthcare provider. The patient was also counseled to store opioid medications in a safe and preferably locked location. Patient was also counseled against driving while using narcotic medications and also to not use alcohol or any illicit or recreational drugs. The patient verbalized understanding that lack of compliance with any of the above and likely result in failure to renew narcotic prescriptions, possible discharge from the clinic, and possible legal ramifications thereafter if indicated. 3. Counseling: The patient was counseled extensively on BODY MASS INDEX, EXERCISE. Specifically, the patient was instructed regarding the importance of weight loss and exercise in the context of both chronic pain and overall health. 4. Procedures: none for now 5. Consultations: None 6. Investigations: UDS today, MAPS queried and appropriate, Valium noted to be prescribed from Dr. Hyman 7. Medications: fentanyl patch 50 mcg/hr q72 #10, Percocet 10/325 (reduced to # 90) with no refills, Neurontin with one refill 8. MME/day: 165. Patient has been stable on this dose for some time. He was again warned regarding the synergistic effects of benzodiazepines and opioids in terms of sedation, nausea, and respiratory depression possibly resulting in . The patient verbalized understanding and acceptance of these risks. Patient states that he takes Valium for GI spasms and what sounds like gastroparesis, for which he is treated by Dr. Gordon. It is probably best and safest for this patient on high dose opioids to not also be on benzos concurrently if possible; we will send documentation to Dr. Hyman and ask him and Dr. Gordon to investigate if there are other options for his gastroparesis other than benzos, as I am still concerned about possible oversedation and respiratory depression. 8. Disposition: f/u for re-eval in 4 weeks PQRS measures: 1-Patient's medications are documented in the chart. 2-Tobacco use is negative 3-Patient has not had a pneumococcal vaccine. 4-Advanced care planning discussed, patient unable to give. 5-Opioid contract signed with the patient. 6-Pain positive, follow-up visit or procedure scheduled 7-Patient's blood pressure measured and documented, within normal limits. 8-Patient's weight was measured, and body mass index ABOVE the normal limits, and counseling was done. Patient instructed to follow up with PCP. 9-Patient WAS NOT identified as an unhealthy alcohol user.
== END | disposition home or self-care (01) ==
LOC: PNWHC3 13:09
PROVIDERS: ATTEND Anesthesiology
DX: G89.29 Other chronic pain (principal); M54.9 Dorsalgia, unspecified; M51.16 Intervertebral disc disorders with radiculopathy, lumbar region; Z79.891 Long term (current) use of opiate analgesic
CPT/HCPCS: 80356; 99211

== ENCOUNTER → 2017-12-01 | Outpatient (CLI) | payer MEDICARE ==
--- NOTE | 2017-12-01 08:53 | CT ---
EXAMINATION TYPE: CT soft tissue neck w con DATE OF EXAM: 12/01/2017 COMPARISON: NONE HISTORY: Tightness in throat, difficulty swallowing, abn thyroid labs CT DLP: 644 mGycm CONTRAST: Patient injected with 100 mL of Isovue 300. TECHNIQUE: Axial images at 3 mm thick sections. Reconstructed images in the coronal plane and sagitt al plane are reviewed. FINDINGS: Limited CT sections are obtained the lung apices. The lung apices appear clear. CT neck: The torus tubarius and fossa of Rosenmuller are normal. [employer] spaces are normal. Para nasal sinuses and mastoid air cells are clear. Parotid glands appear normal and symmetrical. Submandibular glands, are normal. Parapharyngeal spac es are normal. No suspicious adenopathy is evident. There are a few scattered small lymph nodes pres ent. The hypopharynx appears within normal limits. Vocal cord level appear symmetrical. Thyroid as visualized is normal. Osseous structures are normal. There appears to be some reflux of contrast from the subclavian vein i nto the intervertebral foramen on the right at the C6-7 level. Consider MRI with contrast the cervica l spine for additional evaluation. IMPRESSIONS: 1. No suspicious abnormality to account for patient's symptoms. 2. Some reflux of contrast into the intervertebral foramen on the right at C6-7 appears to be present . Consider additional evaluation with MRI with contrast cervical spine.
== END | disposition home or self-care (01) ==
LOC: RADCTMAIN 06:58
PROVIDERS: ATTEND Otolaryngology
DX: R22.1 Localized swelling, mass and lump, neck (principal); R13.10 Dysphagia, unspecified
CPT/HCPCS: 70491; Q9967

== ENCOUNTER → 2017-12-12 | Outpatient (CLI) | payer MEDICARE ==
--- NOTE | 2017-12-12 16:26 | US ---
EXAMINATION TYPE: US venous doppler duplex LE LT DATE OF EXAM: 12/12/2017 4:15 PM COMPARISON: US bilateral October 20, 2014 CLINICAL HISTORY: M79.662 Pain left leg. SIDE PERFORMED: Left TECHNIQUE: The lower extremity deep venous system is examined utilizing real time linear array sonog mark with graded compression, doppler sonography and color-flow sonography. VESSELS IMAGED: External Iliac Vein (EIV) Common Femoral Vein Deep Femoral Vein Greater Saphenous Vein * Femoral Vein Popliteal Vein Proximal Calf Veins (* superficial vessels) Left Leg: Negative for DVT Grayscale, color doppler, spectral doppler imaging performed of the deep veins of the left lower ex tremity. There is normal flow, compressibility, vascular waveforms. IMPRESSION: No ultrasound evidence for acute DVT in the left lower extremity.
== END | disposition home or self-care (01) ==
LOC: RADUSWWP 15:53
PROVIDERS: ATTEND Internal Medicine
DX: M79.662 Pain in left lower leg (principal)

== ENCOUNTER → 2017-12-21 | Outpatient (CLI) | payer MEDICARE | END | disposition home or self-care (01) | LOC: PTMAIN 12:04 | PROVIDERS: ATTEND Otolaryngology | DX: K21.9 Gastro-esophageal reflux disease without esophagitis (principal) | CPT/HCPCS: 31579 ==

== ENCOUNTER → 2018-01-04 | Outpatient (CLI) | payer MEDICARE ==
[2018-01-04 15:24] VITALS: BP 117/78; PULSE 72; RESP 16
--- NOTE | 2018-01-04 15:53 | P.PAINPG ---
Subjective Progress Note Date: 01/04/18 This is follow-up visit for this patient with a history of severe and chronic low back pain secondary to lumbar radiculopathy, lumbar disc herniation We have done an interventional pain procedure lumbar epidural steroid injections , and that helped his low back pain significantly The patient currently on fentanyl patch 50 g every 72 hours, Percocet 10/325 every 8 hours, Neurontin 800 mg 3 times a day Patient denies any side effect of the medication , patient denies any excessive drowsiness or sleepiness, patient denies any suicidal ideation, Patient reported that the current medication is helping to control the pain and improve the activity of daily livings, Patient denies any motor or sensory deficit, denies any change in the bowel movement or urination, patient denies any fever or night sweats. Patient here today for follow-up visit and medication refill Objective - Vital Signs Vital signs: Vital Signs Temp Pulse 72 01/04/18 15:14 Resp 16 01/04/18 15:14 BP 117/78 01/04/18 15:14 Pulse Ox 99 01/04/18 15:14 Intake & Output 01/03/18 01/04/18 01/04/18 18:59 06:59 18:59 Weight 75.75 kg - Exam Physical Examinations : 1-Constitutiona : Cooperative , not in acute distress . 2-HEENT : nech ; supple , no Lymphadenopathy , normal thyroid size . eyes : no ptosis , no icterus , no photophobia . ENT : normal of hearing , normal oropharynx , no Thrush . 3- Respiratory : Chest clear to auscultations Bilaterally , no wheezing , no Rhonchi . 4- Cardiovascular : regular rate and rhythem , S1 , S2 , no S3 , no S4. 5- Gastrointestinal : abdomen soft no tenderness , bowel sounds , no organomegally . 6- Genitourinary : Defferred . 7- neurologic : Cranial nerve II to XII intact , no focal neurological deffecit . 8-psychatric : alert , oriented X 3 , appropriate affect , intact judgment and insight . 9-Lymphatic : no Lymphadenopathy . 10- musculoskeltal : , Lumber spine = lumber facet Loading Test positive strait leg raising test positive at 30 degree Right , positve at 30 degree Left Fabere test positive Right , and positive Left Assessment and Plan Plan: Assessment and plan= chronic low back pain secondary to lumbar herniated disc disease, lumbar radiculopathy chronic and current use of high-risk medication (opioids) Patient denies any side effects of the current pain medication and the current treatment/medication helping the patient to do activity of daily living , Diagnoses, prognosis, treatment options, including but not limited to physical therapy, medication management, interventional therapies, and surgery, were discussed with the patient All the questions answered The narcotic consent was signed and patient agreed and understood the side effects and complications of opioid treatment. Patient signed the narcotic agreement, and was orally counseled, not to overuse, not to abuse, not to Divert , not tp sell pain medication, and to take it as prescribed only, Patient was counseled not to drive or operate heavy equipment while using narcotic medication, and advised not to use alcohol or any Illicit drugs while using the narcotis, the patient's verbalized understanding that lack of compliance with any of the above instructions, will likely to cause discharge from, the pain service, not to renew his narcotic prescriptions Medication managements= patient will be given prescription refills for , Neurontin 800 mg 3 times a day dispense 90 with 1 refill, Percocet 10/325 every 8 hours dispense 90 with 1 refill Fentanyl patch 50 g dispense 10 with 1 refill , patient stop using benzodiazepines, patient will follow up with her tomorrow regarding benzodiazepines risk with a combination of with. opioids, , deviates reviewed and it was appropriate ,MAPS reviewed and it was appropriate , PQRS Measure Charge Sheet Measure #130: Documentation of Current Meds in Medical Chart: Patient's medications documented in chart Measure #226: Tobacco Use: Screen & Cessation Intervention: Pt not a tobacco user Measure #111: Pneumonia Vaccination: Pneumococcal vaccine NOT administered or previously given Measure #47: Advance Care Plan: Advance care planning discussed & documented, pt chose/unable to give Measure #412: Opioid Treatment Agreement: Documented signed opioid trtmnt agreemnt min once during opioid trtmnt Measure #408: Opioid Therapy Follow-up Evaluation: Patient had f/u eval minimum every 3 months during opioid therapy Measure #317: Preventitive Care & Scrn High Bld Press & F/U: Normal blood pressure, f/u not required Measure #128: Body Mass Index (BMI) Screening & Follow-up: BMI documented within normal parameters Measure #131: Pain Assessment & Follow-up: Pain positive & plan documented, Follow-up scheduled Measure #431: Unhealthy Alcohol Use Preventative Care & Scrn: Patient not identified as an unhealthy alcohol user PQRS Narrative: Smoking Status Never smoker Do You Want the Pneumonia No Vaccine AT THIS TIME? Narcotic Agreement Date Signed 08/27/14 Blood Pressure 117/78 Pain Intensity [Bilateral 3 Lower Back] Scale Used Numeric (1 - 10) Hx Alcohol Use (MH) Yes: OCCASIONAL USE. Home Medications: Ambulatory Orders Aspirin 81 mg PO BID 05/13/15 L.acidoph,Paracasei, B.lactis [Probiotic] 1 tab PO DAILY 08/04/15 Multivitamin [Men's Multi-Vitamin] 1 tab PO DAILY 08/04/15 Verapamil HCl [Verapamil ER] 120 mg PO DAILY 08/21/15 Docusate [Colace] 100 mg PO BID #60 11/23/16 Rosuvastatin Calcium 20 mg PO HS 11/23/16 Dicyclomine [Bentyl] 10 mg PO QID PRN 06/07/17 Pantoprazole Sodium 40 mg PO DAILY 06/07/17 Calcium Carbonate/Vitamin D3 [Calcium 500-Vit D3 200 Tablet] 1 each PO BID 08/02 Gabapentin 800 mg PO TID 30 Days #90 tab 01/04/18 fentaNYL 50MCG/HR PATCH [Duragesic 50MCG/HR] 1 patch TRANSDERM Q72H 30 Days #10 patch 01/04/18 fentaNYL 50MCG/HR PATCH [Duragesic 50MCG/HR] 50 mcg TRANSDERM Q72H 30 Days #10 patch 01/04/18 oxyCODONE HCL/ACETAMINOPHEN [Percocet 10-325 mg] 1 tab PO Q8HR PRN 30 Days #90 tab 01/04/18 oxyCODONE-APAP 10-325MG [Percocet 10-325 mg] 1 tab PO TID PRN 30 Days #90 tab Controlled Substance Measures - Controlled Substance Measures Is patient prescribed a controlled substance at discharge?: Yes When asked, does pt state using other controlled substances?: No If prescribed controlled substance>3 days was MAPS reviewed?: Yes If Rx opioid, was Start Talking consent form obtained?: Yes If opioid is for acute pain is fill amount 7 days or less?: No Was information provided regarding opioid addiction?: Yes
== END | disposition home or self-care (01) ==
LOC: PNWHC3 13:54
PROVIDERS: ATTEND Specialist
DX: G89.29 Other chronic pain (principal); M51.16 Intervertebral disc disorders with radiculopathy, lumbar region; Z79.891 Long term (current) use of opiate analgesic; Z79.899 Other long term (current) drug therapy
CPT/HCPCS: 99211

== ENCOUNTER → 2018-01-24 | Outpatient (CLI) | payer MEDICARE ==
--- NOTE | 2018-01-24 14:02 | MR ---
EXAMINATION TYPE: MR cervical spine wo/w con DATE OF EXAM: 01/24/2018 COMPARISON: None HISTORY: Degenerative osteoarthritis TECHNIQUE: Multiplanar, multisequence images of the cervical spine were acquired utilizing 7 mL intravenous Gada vist gadolinium contrast. Diffusion weighted imaging was performed. FINDINGS: No focal disc herniations or significant disc bulges are evident. No spinal canal stenosis present. T here is some uncovertebral joint hypertrophy causing mild foraminal narrowing. This appears greatest at the right C3-4 level. Spinal cord maintains normal signal through its visualized course. No abnorm al enhancement is evident. IMPRESSION: 1. Mild foraminal narrowing secondary to uncovertebral joint hypertrophy. 2. Essentially unremarkable MRI cervical spine.
== END | disposition home or self-care (01) ==
LOC: RADMRIMAIN 09:01
PROVIDERS: ATTEND Otolaryngology
DX: M99.71 Connective tissue and disc stenosis of intervertebral foramina of cervical region (principal); M53.82 Other specified dorsopathies, cervical region
CPT/HCPCS: 72156; A9581

== ENCOUNTER → 2018-01-24 | Outpatient (CLI) | payer MEDICARE | END | disposition home or self-care (01) | LOC: LABWHC1 10:12 | PROVIDERS: ATTEND Internal Medicine Endocrinology, Diabetes & Metabolism | DX: E05.90 Thyrotoxicosis, unspecified without thyrotoxic crisis or storm (principal) | CPT/HCPCS: 36415; 84439; 84443; 84445; 84480 ==

== ENCOUNTER → 2018-03-01 | Outpatient (CLI) | payer MEDICARE ==
[2018-03-01 12:42] VITALS: BP 114/86; PULSE 68; RESP 16
--- NOTE | 2018-03-01 13:08 | P.PN ---
Subjective Progress Note Date: 03/01/18 This is a 42-year-old gentleman with lower back pain with radiation to the right lower extremity with occasional tingling in the right calf. The pain reaches his right ankle. The patient has been doing well with a combination of interventional pain procedures and oral opioids. I encouraged the patient to go down his Percocet to 2 pills a day instead of 3. Today, pt denies new-onset weakness, bowel/bladder incontinence, or any other signs or symptoms of cauda equina syndrome. There are no signs of acute intoxication, and no indications of medication diversion or overuse. In addition to above, 13-point review of systems is also negative for chest pain , shortness of breath, changes in vision, changes in hearing, new onset weakness , abdominal pain, diarrhea, extreme fatigue, malaise, fever, skin changes, homicidal or suicidal ideation, or bowel or bladder incontinence. Vital Signs: Reviewed in EMR Gen: AAOx3, NAD HEENT: PERRLA,hearing grossly normal Pulm: resp unlabored,CTA Heart:S1,S2, No Mur Neck: supple, trachea midline Neuro exam of the lower extremities: Normal Straight leg raising test: Negative bilaterally Tenderness in the paravertebral musculature: Mildly positive more on the right side of the spine on the left side in the lumbar area Neuro: CN II-XII grossly intact, Imaging: Reviewed in EMR/chart Assessment: Lumbar spondylosis without myelopathy Right lumbar radiculopathy Plan: 1. Explanation: Opioid and psychological risk scores were reviewed. Diagnoses , prognoses, and multiple treatment options including but not limited to physical therapy, interventional therapies, adjuvant medical therapies, narcotic medication therapies, and surgery were discussed with the patient and all questions were answered to the patient's satisfaction. 2. Opioid agreement: Signed with the patient and the patient is warned not to use opioids while driving or before driving and not to combine opioids with benzodiazepines or alcohol. 3. Counseling: The patient was counseled extensively on SMOKING CESSATION, BODY MASS INDEX, EXERCISE. Specifically, the patient was instructed regarding the importance of smoking cessation, obesity, and exercise in the context of both chronic pain and overall health. 4. Procedures: None at this point 5. Consultations: None 6. Investigations: None 7. Medications: Continue fentanyl patch 50 mics an hour every 72 hours and Percocet 10 mg 3 times a day plus Neurontin 800 mg 3 times a day . The patient is encouraged to go down on his Percocet to 2 pills a day instead of 3. 8. Disposition: Return to clinic in 2 months 9. Maps were reviewed and were appropriate. Objective - Vital Signs Vital signs: Vital Signs Temp Pulse 68 03/01/18 12:32 Resp 16 03/01/18 12:32 BP 114/86 03/01/18 12:32 Pulse Ox Intake & Output 02/28/18 03/01/18 03/01/18 18:59 06:59 18:59 Weight 76.204 kg
== END | disposition home or self-care (01) ==
LOC: PNWHC3 12:18
PROVIDERS: ATTEND Anesthesiology
DX: M47.26 Other spondylosis with radiculopathy, lumbar region (principal); Z79.891 Long term (current) use of opiate analgesic; Z79.899 Other long term (current) drug therapy; Z98.890 Other specified postprocedural states
CPT/HCPCS: 99211

== ENCOUNTER → 2018-03-20 | Outpatient (CLI) | payer MEDICARE ==
--- NOTE | 2018-03-20 13:40 | XR ---
EXAMINATION TYPE: XR chest 2V DATE OF EXAM: 03/20/2018 COMPARISON: Prior chest 10/20/2014 HISTORY: Shortness of breath and chest pain TECHNIQUE: Frontal and lateral views of the chest are obtained. FINDINGS: There is no focal air space opacity, pleural effusion, or pneumothorax seen. The cardiac silhouette size is within normal limits. Surgical clips present in the upper abdomen. There is a mil d spinal curvature. The osseous structures are intact. IMPRESSION: No acute cardiopulmonary process.
[2018-03-21 10:47] LABS: Alt. alternata IgE Class CLASS 0; Alternaria alternata IgE <0.35 kU/L (<0.35); Asperg. fumagatus IgE <0.35 kU/L (<0.35); Asperg. fumagatus IgE Class CLASS 0; Bermuda Grass IgE <0.35 kU/L (<0.35); Birch(Com.Silvr) IgE <0.35 kU/L (<0.35); Birch(Com.Silvr) IgE Class CLASS 0; Cat Epith & Dander IgE <0.35 kU/L (<0.35); Cat Epith & Dander IgE Class CLASS 0; Clad herbarum IgE <0.35 kU/L (<0.35); Cockroach IgE <0.35 kU/L (<0.35); Cottonwood IgE <0.35 kU/L (<0.35); Dermato. Pteronyssinus IgE 3.21 kU/L (<0.35); Dermato. farinae IgE 2.43 kU/L (<0.35); Dermato. farinae IgE Class CLASS II; Dog Dander IgE <0.35 kU/L (<0.35); Elm IgE <0.35 kU/L (<0.35); Maple (Box Elder) IgE <0.35 kU/L (<0.35); Maple (Box Elder) IgE Class CLASS 0; Mountain Cedar IgE <0.35 kU/L (<0.35); Mountain Cedar IgE Class CLASS 0; Mouse Urine IgE Class CLASS 0; Nettle IgE <0.35 kU/L (<0.35); Nettle IgE Class CLASS 0; Oak IgE <0.35 kU/L (<0.35); Penicillium notatum IgE Class CLASS 0; Rough Marshelder IgE <0.35 kU/L (<0.35); Rough Marshelder IgE Class CLASS 0; Timothy Grass IgE <0.35 kU/L (<0.35); White Ash IgE Class CLASS 0
== END ==
LOC: RADXRMAIN 10:03
PROVIDERS: ATTEND Internal Medicine Sleep Medicine
DX: R06.02 Shortness of breath (principal); R07.9 Chest pain, unspecified; B44.81 Allergic bronchopulmonary aspergillosis; J90 Pleural effusion, not elsewhere classified
CPT/HCPCS: 36415; 71046; 82785; 85379; 86001; 86003; 86606; 86609

== ENCOUNTER → 2018-04-26 | Outpatient (CLI) | payer MEDICARE ==
[2018-04-26 13:53] VITALS: BP 117/76; PULSE 59; RESP 18
--- NOTE | 2018-04-26 15:25 | P.PAINPG ---
Subjective Progress Note Date: 04/26/18 This is follow-up visit for this patient with a history of severe and chronic low back pain secondary to lumbar radiculopathy, lumbar disc herniation We have done an interventional pain procedure lumbar epidural steroid injections , and that helped his low back pain significantly The patient currently on fentanyl patch 50 g every 72 hours, Percocet 10/325 every 8 hours, Neurontin 800 mg 3 times a day Patient denies any side effect of the medication , patient denies any excessive drowsiness or sleepiness, patient denies any suicidal ideation, Patient reported that the current medication is helping to control the pain and improve the activity of daily livings, Patient denies any motor or sensory deficit, denies any change in the bowel movement or urination, patient denies any fever or night sweats. Patient here today for follow-up visit and medication refill Physical Examinations : 1-Constitutiona : Cooperative , not in acute distress . 2-HEENT : nech ; supple , no Lymphadenopathy , normal thyroid size . eyes : no ptosis , no icterus , no photophobia . ENT : normal of hearing , normal oropharynx , no Thrush . 3- Respiratory : Chest clear to auscultations Bilaterally , no wheezing , no Rhonchi . 4- Cardiovascular : regular rate and rhythem , S1 , S2 , no S3 , no S4. 5- Gastrointestinal : abdomen soft no tenderness , bowel sounds , no organomegally . 6- Genitourinary : Defferred . 7- neurologic : Cranial nerve II to XII intact , no focal neurological deffecit . 8-psychatric : alert , oriented X 3 , appropriate affect , intact judgment and insight . 9-Lymphatic : no Lymphadenopathy . 10- musculoskeltal : , Lumber spine = lumber facet Loading Test positive strait leg raising test positive at 30 degree Right , positve at 30 degree Left Fabere test positive Right , and positive Left Assessment and plan= chronic low back pain secondary to lumbar herniated disc disease, lumbar radiculopathy chronic and current use of high-risk medication (opioids) Patient denies any side effects of the current pain medication and the current treatment/medication helping the patient to do activity of daily living , Diagnoses, prognosis, treatment options, including but not limited to physical therapy, medication management, interventional therapies, and surgery, were discussed with the patient All the questions answered The narcotic consent was signed and patient agreed and understood the side effects and complications of opioid treatment. Patient signed the narcotic agreement, and was orally counseled, not to overuse, not to abuse, not to Divert , not tp sell pain medication, and to take it as prescribed only, Patient was counseled not to drive or operate heavy equipment while using narcotic medication, and advised not to use alcohol or any Illicit drugs while using the narcotis, understanding that lack of compliance with any of the above instructions, will likely to cause discharge from, the pain service, not to renew his narcotic prescriptions Medication managements= patient will be given prescription refills for , Neurontin 800 mg 3 times a day dispense 90 with 1 refill, Percocet 10/325 every 8 hours dispense 90 with 1 refill Fentanyl patch 50 g dispense 10 with 1 refill , patient stop using benzodiazepines, patient will follow up with her tomorrow regarding benzodiazepines risk with a combination of with. opioids, , deviates reviewed and it was appropriate ,MAPS reviewed and it was appropriate Next visit we'll do urine drug screen , Objective - Vital Signs Vital signs: Vital Signs Temp Pulse 59 L 04/26/18 13:45 Resp 18 04/26/18 13:45 BP 117/76 04/26/18 13:45 Pulse Ox 100 04/26/18 13:45 Intake & Output 04/25/18 04/26/18 04/26/18 18:59 06:59 18:59 Weight 77.111 kg PQRS Measure Charge Sheet Measure #130: Documentation of Current Meds in Medical Chart: Patient's medications documented in chart Measure #226: Tobacco Use: Screen & Cessation Intervention: Pt not a tobacco user Measure #111: Pneumonia Vaccination: Pneumococcal vaccine NOT administered or previously given Measure #47: Advance Care Plan: Advance care planning discussed & documented, pt chose/unable to give Measure #412: Opioid Treatment Agreement: Documented signed opioid trtmnt agreemnt min once during opioid trtmnt Measure #408: Opioid Therapy Follow-up Evaluation: Patient had f/u eval minimum every 3 months during opioid therapy Measure #317: Preventitive Care & Scrn High Bld Press & F/U: Normal blood pressure, f/u not required Measure #128: Body Mass Index (BMI) Screening & Follow-up: BMI documented within normal parameters Measure #131: Pain Assessment & Follow-up: Pain positive & plan documented, Follow-up scheduled Measure #431: Unhealthy Alcohol Use Preventative Care & Scrn: Patient not identified as an unhealthy alcohol user PQRS Narrative: Smoking Status Never smoker Do You Want the Pneumonia No Vaccine AT THIS TIME? Narcotic Agreement Date Signed 03/01/18 Blood Pressure 117/76 Pain Intensity [Bilateral 2 Lower Back] Scale Used Numeric (1 - 10) Hx Alcohol Use (MH) Yes: OCCASIONAL USE. Home Medications: Ambulatory Orders Aspirin 81 mg PO BID 05/13/15 L.acidoph,Paracasei, B.lactis [Probiotic] 1 tab PO DAILY 08/04/15 Multivitamin [Men's Multi-Vitamin] 1 tab PO DAILY 08/04/15 Verapamil HCl [Verapamil ER] 120 mg PO DAILY 08/21/15 Docusate [Colace] 100 mg PO BID #60 11/23/16 Rosuvastatin Calcium 20 mg PO HS 11/23/16 Dicyclomine [Bentyl] 10 mg PO QID PRN 06/07/17 Pantoprazole Sodium 40 mg PO DAILY 06/07/17 Calcium Carbonate/Vitamin D3 [Calcium 500-Vit D3 200 Tablet] 1 each PO BID 08/02 Gabapentin 800 mg PO TID 30 Days #90 tab 04/26/18 Montelukast [Singulair] 10 mg PO HS 04/26/18 fentaNYL 50MCG/HR PATCH [Duragesic 50MCG/HR] 1 patch TRANSDERM Q72H 30 Days #10 patch 04/26/18 fentaNYL 50MCG/HR PATCH [Duragesic 50MCG/HR] 50 mcg TRANSDERM Q72H 30 Days #10 patch 04/26/18 oxyCODONE HCL/ACETAMINOPHEN [Percocet 10-325 mg] 1 tab PO Q8HR PRN 30 Days #90 tab 04/26/18 oxyCODONE-APAP 10-325MG [Percocet 10-325 mg] 1 tab PO TID PRN 30 Days #90 tab Controlled Substance Measures - Controlled Substance Measures Is patient prescribed a controlled substance at discharge?: Yes When asked, does pt state using other controlled substances?: No If prescribed controlled substance>3 days was MAPS reviewed?: Yes If Rx opioid, was Start Talking consent form obtained?: Yes If opioid is for acute pain is fill amount 7 days or less?: No Was information provided regarding opioid addiction?: Yes
== END ==
LOC: PNWHC3 13:36
PROVIDERS: ATTEND Specialist
DX: G89.29 Other chronic pain (principal); M51.16 Intervertebral disc disorders with radiculopathy, lumbar region; Z79.899 Other long term (current) drug therapy; Z79.891 Long term (current) use of opiate analgesic
CPT/HCPCS: 99211

== ENCOUNTER 2018-05-30 08:06 | Day surgery (SDC) | payer MEDICARE ==
[2018-05-29 09:26] VITALS: BMI 22.9
[~2018-05-30 08:06] MED LIST changes: -LACTATED RINGERS 1,000 ML IV ONE; +LACTATED RINGERS 1,000 ML IV SCH; +LIDOCAINE 1% 20 ML VIAL (10MG/ML) FOR IV START INTRADERMA PRN
[2018-05-30 09:47] VITALS: RESP 16; TEMP 97.6
[2018-05-30] MEDS ORDERED: PROPOFOL 10 MG/ML 20 ML VIAL IV ONE (10:40)
--- NOTE | 2018-05-30 10:48 | P.PCN ---
Date of Procedure: 05/30/18 Procedure(s) Performed: BRIEF HISTORY: Patient is a 43-year-old, pleasant, white male, scheduled for an upper endoscopy as part of evaluation of epigastric pain. his lungs a history of GERD and has been on Protonix 40 mg daily. PROCEDURE PERFORMED: Esophagogastroduodenoscopy with biopsy . PREOPERATIVE DIAGNOSIS: GERD/epigastric pain. IV sedation per anesthesia. PROCEDURE: After informed consent was obtained, the patient was brought into the endoscopy unit. IV sedation was administered by Anesthesia under continuous monitoring. Initially the Olympus GIF-140 video endoscope was inserted into the mouth. Esophagus intubated without any difficulty. It was gradually advanced into the stomach and duodenum and carefully examined. The bulb and the second part of the duodenum appeared normal. The scope at this time was withdrawn to the stomach, adequately insufflated with air, and upon careful examination, mucosa of the antrum, and scattered erosions and biopsies were done from this area. The body, cardia and the fundus appeared normal. The scope was then withdrawn into the esophagus. The GE junction was located at 41 cm from the incisors. The esophagus appeared normal. There were no erosions or ulcerations seen. Biopsies were done from the distal esophagus and the patient tolerated the procedure well. IMPRESSION: 1. Antral erosive gastritis. 2. No evidence of esophagitis or peptic ulcer disease. RECOMMENDATIONS: The findings of this examination were discussed with the patient as well as his family. Was advised to follow with the biopsy results. He will increase the Protonix to 40 minute grams twice daily for 6 weeks and follow antireflux measures..
[2018-05-30 10:55] VITALS: PULSE 66
[2018-05-30 11:25] VITALS: BP 123/75
== END 2018-05-30 11:34 | disposition home or self-care (01) ==
LOC: ORWHC2ENDO 08:06
PROVIDERS: ATTEND Internal Medicine Gastroenterology
DX: K29.50 Unspecified chronic gastritis without bleeding (principal); K25.9 Gastric ulcer, unspecified as acute or chronic, without hemorrhage or perforation; E78.5 Hyperlipidemia, unspecified; K58.9 Irritable bowel syndrome, unspecified; K21.9 Gastro-esophageal reflux disease without esophagitis; Z79.82 Long term (current) use of aspirin; Z79.899 Other long term (current) drug therapy; Z79.891 Long term (current) use of opiate analgesic; Z88.5 Allergy status to narcotic agent; Z86.711 Personal history of pulmonary embolism
CPT/HCPCS: 88305; 43239; J2704

== ENCOUNTER → 2018-06-06 | Outpatient (CLI) | payer MEDICARE ==
[2018-06-06 13:13] VITALS: BP 106/75; PULSE 107; RESP 18
--- NOTE | 2018-06-06 14:02 | P.PN ---
Subjective Progress Note Date: 06/06/18 Griffin is a 43-year-old gentleman presents today for follow-up for his low back pain. He's had a long history of back pain with radicular pain going down his right leg. He has a history of sharp shooting pain from his low back into his right leg. He has been on multiple medications over the past and has been on chronic opioid regimen. He continues to be on fentanyl patch 50 g every 72 hours as well as Percocet 10 mg 3 times per day as needed. He denies any side effects from the current medication regimen. He does not work at this time secondary to his pain. He reports that he had been offered to have surgical intervention but has tried to avoid that at this time. Objective - Vital Signs Vital signs: Vital Signs Temp Pulse 107 H 06/06/18 13:10 Resp 18 06/06/18 13:10 BP 106/75 06/06/18 13:10 Pulse Ox 97 06/06/18 13:10 Intake & Output 06/05/18 06/06/18 06/06/18 18:59 06:59 18:59 Weight 76.204 kg - Exam General: Awake and alert oriented 3 no distress Respiratory exam: No audible wheezing no accessory muscle usage Cardiovascular exam: regular rate, palpable bilateral pulses, no lower extremity edema Abdominal exam: No distention nontender to palpation Cervical spine: Normal alignment, Spurling's negative, facet loading negative Lumbar spine: Loss of lumbar lordosis, normal alignment, tender to palpation over bilateral paraspinal muscles, facet loading is positive bilaterally. Straight leg raise is positive on the right Sacroiliac joints: Nontender to palpation, ESTEPHANIA is negative, [place] negative Neuro exam: Normal sensation in bilateral upper extremities, deep tendon reflexes are 2+ bilateral upper extremities. Normal sensation in bilateral lower extremities. Deep tendon reflexes are decreased in the right lower extremity at the patellar and Achilles tendon. Left lower extremity deep tendon reflexes are normal Psych exam: Cooperative, appropriate mood Assessment and Plan Assessment: #1 lumbar radiculopathy #2 degenerative disc disease #3 chronic opioid dependency #4 chronic pain Plan: After long discussion with the patient regarding his current medication regimen we discussed the opiate medications in the long run and not shown to be very beneficial to his chronic pain. Patient is in full agreement and understands the risks associated with her current medications. I advised him of the risks including respiratory depression and and overusing or misusing the medications. The patient is in agreement and understands the risks. Urine drug screens have been appropriate for the patient routinely. Maps was checked on today's visit. Patient is wearing his patch on today's visit. Patient also brought in his old patches to be disposal today in the clinic. Opiates are talking forms also on the patient's chart. I refill the patient's medications for 2 months time and will continue to monitor him for any red flag of opioid misuse
== END | disposition home or self-care (01) ==
LOC: PNWHC3 12:36
PROVIDERS: ATTEND Hospitalist
DX: G89.29 Other chronic pain (principal); M54.5 Low back pain; M51.16 Intervertebral disc disorders with radiculopathy, lumbar region; F11.20 Opioid dependence, uncomplicated
CPT/HCPCS: 99211

== ENCOUNTER → 2018-08-01 | Outpatient (CLI) | payer MEDICARE ==
[2018-08-01 13:38] VITALS: BP 145/78; PULSE 91; RESP 16; TEMP 98.2
--- NOTE | 2018-08-01 15:52 | P.PAINPG ---
Subjective Progress Note Date: 08/01/18 Griffin is a 43-year-old gentleman presents today for follow-up for his low back pain. He had a long history of back pain with radicular pain going down his right leg. He has a history of sharp shooting pain from his low back into his right leg. He has been on multiple medications over the past and has been on chronic opioid regimen. He continues to be on fentanyl patch 50 g every 72 hours as well as Percocet 10 mg 3 times per day as needed. He denies any side effects from the current medication regimen. He does not work at this time secondary to his pain. He reports that he had been offered to have surgical intervention but has tried to avoid that at this time. Physical Examinations : -Constitutiona : Cooperative , not in acute distress . -HEENT : nech ; supple , no Lymphadenopathy , normal thyroid size . eyes : no ptosis , no icterus, no photophobia . ENT : normal of hearing , normal oropharynx , no Thrush . - Respiratory : Chest clear to auscultations Bilaterally , no wheezing , no Rhonchi . - Cardiovascula : regular rate and rhythem , S1 , S2 , no S3 , no S4. - Gastrointestina : abdomen soft no tenderness , bowel sounds , no organomegally . - Genitourinary : Defferred . - neurologic : Cranial nerve II to XII intact , no focal neurological deffecit . -psychatric : alert , oriented X 3 , appropriate affect , intact judgment and insight . -Lymphatic : no Lymphadenopathy . - musculoskeltal : Lumber spine moter stegnth lower extremities ,thigh and legs 5/5 Right side , 5/5 Left side deep tendon reflexes : normal Knee Jerk , normal ankle Jerk positive lumber facet Loading Test Range of motion of the lumbar spine Flexion 30 degrees, extension 10 degrees strait leg raising test , positive at 45 degree on the right is positive at 60 on the left side Fabere test positive RT and positive LT . MRI of the lumbar spine done previously showed lumbar degenerative disc disease and right sided disc herniation at L3 4 levels Assessment and Plan #1 lumbar radiculopathy #2 degenerative disc disease #3 clinical finding of lumbar spondylosis with lumbar facet arthropathy. #4chronic and current use of high-risk medication (opioids) Patient denies any side effects of the current pain medication and the current treatment/medication helping the patient to do activity of daily living , Diagnoses, prognosis, treatment options, including but not limited to physical therapy, medication management, interventional therapies, and surgery, were discussed with the patient All the questions answered The narcotic consent was signed and patient agreed and understood the side effects and complications of opioid treatment. Patient signed the narcotic agreement, and was orally counseled, not to overuse, not to abuse, not to Divert , not tp sell pain medication, and to take it as prescribed only, Patient was counseled not to drive or operate heavy equipment while using narcotic medication, and advised not to use alcohol or any Illicit drugs while using the narcotis. understanding that lack of compliance with any of the above instructions, will likely to cause discharge from, the pain service, not to renew his narcotic prescriptions MAPS Reviwed and it was apropriate . Medication managements= patient will be given prescription refills for fentanyl patch 50 g every 72 hours dispense 10 with one refill ,and Percocet 10 /325 every 8 hours dispense 90 with 1 refill Patient could benefit from lumbar epidural steroid injections under fluoroscopy guidance at the L4 5 If patient continued to have pain after the lumbar epidural steroid injection x2 ,then we will order MRI of the lumbar spine to reevaluate , Objective - Vital Signs Vital signs: Vital Signs Temp 98.2 F 08/01/18 13:31 Pulse 91 08/01/18 13:31 Resp 16 08/01/18 13:31 BP 145/78 08/01/18 13:31 Pulse Ox Intake & Output 07/31/18 08/01/18 08/01/18 18:59 06:59 18:59 Weight 76.204 kg PQRS Measure Charge Sheet Measure #130: Documentation of Current Meds in Medical Chart: Patient's medications documented in chart Measure #226: Tobacco Use: Screen & Cessation Intervention: Pt not a tobacco user Measure #111: Pneumonia Vaccination: Pneumococcal vaccine NOT administered or previously given Measure #47: Advance Care Plan: Advance care planning discussed & documented, pt chose/unable to give Measure #412: Opioid Treatment Agreement: Documented signed opioid trtmnt agreemnt min once during opioid trtmnt Measure #408: Opioid Therapy Follow-up Evaluation: Patient had f/u eval minimum every 3 months during opioid therapy Measure #317: Preventitive Care & Scrn High Bld Press & F/U: Pre-hypertensive or hypertensive BP documented, pt will f/u with PCP Measure #128: Body Mass Index (BMI) Screening & Follow-up: BMI documented within normal parameters Measure #131: Pain Assessment & Follow-up: Pain positive & plan documented, Follow-up scheduled Measure #431: Unhealthy Alcohol Use Preventative Care & Scrn: Patient not identified as an unhealthy alcohol user PQRS Narrative: Smoking Status Never smoker Narcotic Agreement Date Signed 03/01/18 Blood Pressure 145/78 Pain Intensity [Right Lower 3 Back] Scale Used Numeric (1 - 10) Hx Alcohol Use (MH) Yes: OCCASIONAL USE. Home Medications: Ambulatory Orders Aspirin 162 mg PO DAILY 05/13/15 Multivitamin [Men's Multi-Vitamin] 1 tab PO DAILY 08/04/15 Verapamil HCl [Verapamil ER] 120 mg PO QAM 08/21/15 Docusate [Colace] 100 mg PO BID #60 11/23/16 Rosuvastatin Calcium 20 mg PO HS 11/23/16 Dicyclomine [Bentyl] 10 mg PO QID PRN 06/07/17 Pantoprazole Sodium 40 mg PO DAILY 06/07/17 Montelukast [Singulair] 10 mg PO HS 04/26/18 Gabapentin 800 mg PO TID 30 Days #90 tab 08/01/18 fentaNYL 50MCG/HR PATCH [Duragesic 50MCG/HR] 1 patch TRANSDERM Q72H 30 Days #10 patch 08/01/18 fentaNYL 50MCG/HR PATCH [Duragesic 50MCG/HR] 50 mcg TRANSDERM Q72H 30 Days #10 patch 08/01/18 oxyCODONE HCL/ACETAMINOPHEN [Percocet 10-325 mg] 1 tab PO Q8HR PRN 30 Days #90 tab 08/01/18 oxyCODONE-APAP 10-325MG [Percocet 10-325 mg] 1 tab PO TID PRN 30 Days #90 tab Controlled Substance Measures - Controlled Substance Measures Is patient prescribed a controlled substance at discharge?: Yes When asked, does pt state using other controlled substances?: No If prescribed controlled substance>3 days was MAPS reviewed?: Yes If Rx opioid, was Start Talking consent form obtained?: Yes If opioid is for acute pain is fill amount 7 days or less?: No Was information provided regarding opioid addiction?: Yes
== END | disposition home or self-care (01) ==
LOC: PNWHC3 13:23
PROVIDERS: ATTEND Specialist
DX: M51.16 Intervertebral disc disorders with radiculopathy, lumbar region (principal); M47.26 Other spondylosis with radiculopathy, lumbar region; M46.96 Unspecified inflammatory spondylopathy, lumbar region; Z79.891 Long term (current) use of opiate analgesic; Z79.82 Long term (current) use of aspirin
CPT/HCPCS: 99211

== ENCOUNTER → 2018-08-13 | Day surgery (SDC) | payer MEDICARE, OTHER ==
[2018-08-10 09:21] VITALS: BMI 22.9
[~2018-08-13] MED LIST changes: +IV FLUID CONTINUATION 1,000 ML IV ONE; +LACTATED RINGERS 1,000 ML IV ONE; -LACTATED RINGERS 1,000 ML IV SCH; -LIDOCAINE 1% 20 ML VIAL (10MG/ML) FOR IV START INTRADERMA PRN; +SODIUM CHLORIDE 0.9% 500 ML 500 ML IV SCH
[2018-08-13 06:50] VITALS: TEMP 98.4
--- NOTE | 2018-08-13 07:28 | P.PCN ---
Date of Procedure: 08/13/18 Surgeon: Eriberto Hale Pathology: none sent Condition: stable Disposition: PACU Description of Procedure: PREOPERATIVE DIAGNOSIS: 1-Lumbar radiculopathy 2- Lumber Degenerative Disc Diseases. POSTOPERATIVE DIAGNOSIS: 1-Lumbar radiculopathy. 2-Lumbar Degenerative Disc Diseases PROCEDURE 1. Lumbar epidural steroid injection under fluoroscopic guidance at the L4-5 level in the right paramedian approach. 2. Lumbar epidurogram. ANESTHESIA: Local with 1% lidocaine; and IV moderate conscious sedation with Versed and fentanyl EBL: Minimal PROCEDURE INDICATION: The patient with low back pain and radiculitis symptoms unresponsive to conservative treatment. Fluoroscopy was used to optimize visualization of the needle placement and to maximize safety. PROCEDURE DESCRIPTION / TECHNIQUE: The patient was seen and identified in the preoperative area. Risks, benefits , complications including but not limited to infections ,bleeding ,allergic reaction to the medications ,nerve damage and not complete pain relief , and alternatives were discussed with the patient. The patient agreed to proceed with the procedure and signed the consent. IV was started, and vital signs were stable. Patient was taken to the OR and time out was completed. The patient was placed in the prone position on procedure table and a pillow was placed under the abdomen to reduce lumbar lordosis. The lumbosacral area was prepped and draped in the usual sterile fashion with ChloraPrep.Patient was closely monitored during the procedure. Conscious sedation was used during the procedure to decrease patients anxiety. Vital signs were monitered during the entire procedure. Using anterior-posterior fluoroscopy, the L4-5 interlaminar space was identified and the skin over this site was marked and then infiltrated with 1% lidocaine subcutaneously. Subsequently, a 20-gauge Tuohy epidural needle was inserted and advanced toward the epidural space using the Loss of resistance to air technique and guided by AP and lateral fluoroscopy. The correct needle position in the epidural space was verified with the injection of 1 mL of the water soluble contrast dye Omnipaque 180 contrast and observing an excellent epidurogram with the epidural spread of the dye, after negative aspiration for blood and CSF and in the absence of paresthesias. The epidural space was about 5.5 cm deep from skin level. Again after negative aspiration, a 8 ml mixture containing 80 mg of Kenalog and 5 ml of preservative free Normal Saline, and 2 ml of preservative free ropivacaine 0.5% solution was injected and a washout of epidurogram was seen. Needle was withdrawn intact, skin was cleansed, and bandages were applied. patient tolerated procedure well and was transferred to PACU in stable condition. COMPLICATIONS: None
[2018-08-13 07:38] VITALS: RESP 18
[2018-08-13 07:50] VITALS: BP 122/63; PULSE 79
--- NOTE | 2018-08-13 09:43 | FL ---
EXAMINATION TYPE: FL guided pain mgmt statistic DATE OF EXAM: 08/13/2018 HISTORY: Flouroscopy time 9 seconds of fluoroscopy provided. IMPRESSION: 1. Fluoroscopy time.
== END | disposition home or self-care (01) ==
LOC: ORPAIN 06:30
PROVIDERS: ATTEND Anesthesiology
DX: M51.16 Intervertebral disc disorders with radiculopathy, lumbar region (principal); Z88.5 Allergy status to narcotic agent
CPT/HCPCS: 62323; J2250; J3301; J3010; Q9966

== ENCOUNTER 2018-09-03 07:13 | Day surgery (SDC) | payer MEDICARE, OTHER ==
[2018-08-30 10:01] VITALS: BMI 22.9
--- NOTE | 2018-09-03 06:53 | P.GSHP ---
History of Present Illness H&P Date: 09/03/18 43-year-old male presenting for an epidural steroid injection at the L4-L5 interspace. Complaints of low back pain radiating into bilateral extremities. No bowel or bladder dysfunction. Physical Exam : CVS: Regular rate and rhythm, no peripheral edema Pulmonary: Nonlabored, no wheezing Plan: #2 LESI L4-L5. Bring back for a third LESI. Consider consultation to surgical dental assistant. Past Medical History Past Medical History: Asthma, GERD/Reflux, Hyperlipidemia, Pulmonary Embolus (PE), Thyroid Disorder Additional Past Medical History / Comment(s): Irregular heart beat, migraines, IBS, pancreatitis, chronic low back pain with tingling in legs., lumbar herniated discs, spinal stenosis, DDD, hx hiatal hernia with surgery x2., Hx of partial bowel obstruction., constipation, Hx of PE's (2013), Hx of blood in stool., states over active thyroid., Environmental allergies. History of Any Multi-Drug Resistant Organisms: None Reported Past Surgical History: Cholecystectomy, Hernia Repair, Orthopedic Surgery Additional Past Surgical History / Comment(s): Rt quadricep tendon surgeries x 2. raffi fundloplication x 2, ERCP, rt arm surgery Past Anesthesia/Blood Transfusion Reactions: No Reported Reaction Additional Past Anesthesia/Blood Transfusion Reaction / Comment(s): . Smoking Status: Never smoker - Past Family History Mother Family Medical History: No Reported History Additional Family Medical History / Comment(s): . Father Family Medical History: Pulmonary Embolus Additional Family Medical History / Comment(s): gastric issues, heart issues Medications and Allergies Home Medications Medication Instructions Recorded Confirmed Type Aspirin 162 mg PO DAILY 05/13/15 08/30/18 History Multivitamin [Men's Multi-Vitamin] 1 tab PO DAILY 08/04/15 08/30/18 History Verapamil HCl [Verapamil ER] 120 mg PO QAM 08/21/15 08/30/18 History Docusate [Colace] 100 mg PO BID #60 11/23/16 08/30/18 Rx Rosuvastatin Calcium 20 mg PO HS 11/23/16 08/30/18 History Dicyclomine [Bentyl] 10 mg PO QID PRN 06/07/17 08/30/18 History Pantoprazole Sodium 40 mg PO DAILY 06/07/17 08/30/18 History Montelukast [Singulair] 10 mg PO HS 04/26/18 08/30/18 History Gabapentin 800 mg PO TID 30 Days #90 tab 08/01/18 08/30/18 Rx fentaNYL 50MCG/HR PATCH [Duragesic 50 mcg TRANSDERM Q72H 30 Days #10 08/01/18 08/30/18 Rx 50MCG/HR] patch Cholecalciferol [Vitamin D3] 1,000 unit PO DAILY 08/10/18 08/30/18 History Fluticasone/Vilanterol [Breo 1 dose INHALATION DAILY 08/10/18 08/30/18 History Ellipta 100-25 Mcg Inhaler] Karina-Man Vit. Supplement 1 tab PO DAILY 08/10/18 08/30/18 History Magnesium 500 mg PO DAILY 08/10/18 08/30/18 History oxyCODONE HCL/ACETAMINOPHEN 1 tab PO TID PRN 08/10/18 08/30/18 History [Percocet 10-325 mg] Allergies Allergy/AdvReac Type Severity Reaction Status Date / Time tramadol Allergy UPSET Verified 08/30/18 09:54 STOMACH
--- NOTE | 2018-09-03 06:54 | P.PCN ---
Date of Procedure: 09/03/18 Description of Procedure: Description of Procedure: PREOPERATIVE DIAGNOSIS: 1-Lumbar radiculopathy 2- Lumber Degenerative Disc Diseases. POSTOPERATIVE DIAGNOSIS: 1-Lumbar radiculopathy. 2-Lumbar Degenerative Disc Diseases PROCEDURE 1. Lumbar epidural steroid injection under fluoroscopic guidance at the L4-5 level in the right paramedian approach. 2. Lumbar epidurogram. ANESTHESIA: Local with 1% lidocaine; and IV moderate conscious sedation with Versed and fentanyl EBL: Minimal PROCEDURE INDICATION: The patient with low back pain and radiculitis symptoms unresponsive to conservative treatment. Fluoroscopy was used to optimize visualization of the needle placement and to maximize safety. PROCEDURE DESCRIPTION / TECHNIQUE: The patient was seen and identified in the preoperative area. Risks, benefits, complications including but not limited to infections ,bleeding ,allergic reaction to the medications ,nerve damage and not complete pain relief , and alternatives were discussed with the patient. The patient agreed to proceed with the procedure and signed the consent. IV was started, and vital signs were stable. Patient was taken to the OR and time out was completed. The patient was placed in the prone position on procedure table and a pillow was placed under the abdomen to reduce lumbar lordosis. The lumbosacral area was prepped and draped in the usual sterile fashion with ChloraPrep.Patient was closely monitored during the procedure. Conscious sedation was used during the procedure to decrease patients anxiety. Vital signs were monitered during the entire procedure. Using anterior-posterior fluoroscopy, the L4-5 interlaminar space was identified and the skin over this site was marked and then infiltrated with 1% lidocaine subcutaneously. Subsequently, a 20-gauge Tuohy epidural needle was inserted and advanced toward the epidural space using the Loss of resistance to air technique and guided by AP and lateral fluoroscopy. The correct needle position in the epidural space was verified with the injection of 1 mL of the water soluble contrast dye Omnipaque 180 contrast and observing an excellent epidurogram with the epidural spread of the dye, after negative aspiration for blood and CSF and in the absence of paresthesias. The epidural space was about 5.5 cm deep from skin level. Again after negative aspiration, a 8 ml mixture containing 80 mg of Kenalog and 5 ml of preservative free Normal Saline was injected and a washout of epidurogram was seen. Needle was withdrawn intact, skin was cleansed, and bandages were applied. patient tolerated procedure well and was transferred to PACU in stable condition. COMPLICATIONS: None
[~2018-09-03 07:13] MED LIST changes: -IV FLUID CONTINUATION 1,000 ML IV ONE; -LACTATED RINGERS 1,000 ML IV ONE
[2018-09-03 07:39] VITALS: RESP 16; TEMP 98.6
[2018-09-03] MEDS ORDERED: LACTATED RINGERS 1,000 ML IV ONE (07:45)
[2018-09-03] MEDS ORDERED: IV FLUID CONTINUATION 1,000 ML IV ONE (08:11)
[2018-09-03 08:30] VITALS: BP 115/73; PULSE 63
--- NOTE | 2018-09-03 09:44 | FL ---
Fluoroscopy HISTORY: Pain 4 seconds fluoroscopy time supplied to the referring clinician. 1 intraoperative C-arm images docume nt the procedure. See dictated report from anesthesia.
== END 2018-09-03 08:39 | disposition home or self-care (01) ==
LOC: ORPAIN 07:13
PROVIDERS: ATTEND Anesthesiology
DX: G89.29 Other chronic pain (principal); M51.16 Intervertebral disc disorders with radiculopathy, lumbar region; K21.9 Gastro-esophageal reflux disease without esophagitis; E78.5 Hyperlipidemia, unspecified; Z86.711 Personal history of pulmonary embolism; E07.9 Disorder of thyroid, unspecified; K58.9 Irritable bowel syndrome, unspecified; Z79.82 Long term (current) use of aspirin; Z79.891 Long term (current) use of opiate analgesic; Z79.51 Long term (current) use of inhaled steroids; Z79.899 Other long term (current) drug therapy; Z88.5 Allergy status to narcotic agent
CPT/HCPCS: 62323; J2250; J1030; J3010; Q9966

== ENCOUNTER → 2018-09-24 | Day surgery (SDC) | payer MEDICARE ==
[2018-09-18 15:39] VITALS: BMI 22.8
[~2018-09-24] MED LIST changes: +LACTATED RINGERS 1,000 ML IV SCH; -SODIUM CHLORIDE 0.9% 500 ML 500 ML IV SCH
== END ==
LOC: ORPAIN 10:47
PROVIDERS: ATTEND Specialist
DX: M51.36 Other intervertebral disc degeneration, lumbar region (principal); Z53.9 Procedure and treatment not carried out, unspecified reason

== ENCOUNTER → 2018-09-26 | Outpatient (CLI) | payer MEDICARE ==
[2018-09-26 12:10] VITALS: BP 128/85; PULSE 85; RESP 16
--- NOTE | 2018-09-26 12:47 | P.PN ---
Subjective Progress Note Date: 09/26/18 This is a 43-year-old gentleman with history of low back pain with radiation to the right lower extremity with occasional numbness and tingling in the right leg. The patient is having physical therapy at this point and he is scheduled to have lumbar epidural steroid injection in a few weeks from now. The patient has been on opioids for quite sometime including fentanyl patch 50 mics an hour every 72 hours and Percocet 10 mg 3 times a day plus Neurontin 800 mg 3 times a day. His lumbar spine MRI shows moderate degenerative disc disease. Today, pt denies new-onset weakness, bowel/bladder incontinence, or any other signs or symptoms of cauda equina syndrome. There are no signs of acute intoxication, and no indications of medication diversion or overuse. In addition to above, 13-point review of systems is also negative for chest pain, shortness of breath, changes in vision, changes in hearing, new onset weakness, abdominal pain, diarrhea, extreme fatigue, malaise, fever, skin changes, homicidal or suicidal ideation, or bowel or bladder incontinence. Vital Signs: Reviewed in EMR Gen: AAOx3, NAD HEENT: PERRLA,hearing grossly normal Pulm: resp unlabored,CTA Heart:S1,S2, No Mur Neck: supple, trachea midline Neuro exam of the lower extremities: Normal and symmetrical deep tendon reflexes and normal and symmetrical muscle strength Straight leg raising test: Positive on the right side Mauricio's test: Range of motion of the lumbar spine: Facet loading test: Tenderness in the paravertebral musculature: Neuro: CN II-XII grossly intact, Imaging: Reviewed in EMR/chart Assessment: Right lumbar radiculopathy Lumbar degenerative disc disease Opioid dependence Plan: 1. Explanation: Opioid and psychological risk scores were reviewed. Diagnoses, prognoses, and multiple treatment options including but not limited to physical therapy, interventional therapies, adjuvant medical therapies, narcotic medication therapies, and surgery were discussed with the patient and all questions were answered to the patient's satisfaction. 2. Opioid agreement: Signed with the patient and the patient is warned not to use opioids while driving or before driving and not to combine opioids with benzodiazepines or alcohol. 3. Counseling: The patient was counseled extensively on SMOKING CESSATION, BODY MASS INDEX, EXERCISE. Specifically, the patient was instructed regarding the importance of smoking cessation, obesity, and exercise in the context of both chronic pain and overall health. 4. Procedures: Patient is already scheduled for lumbar epidural steroid injection under fluoroscopic guidance 5. Consultations: None 6. Investigations: None 7. Medications: We will wean the patient down on his opioids and I will start today by decreasing his fentanyl patch dose from 50 mics an hour to 25 mics an hour every 72 hours. We will keep him on Percocet 10 mg 3 times a day and Neurontin 800 mg 3 times a day however the planning the patient will be to go down on the Percocet dose too. 8. Disposition: Return to the above-mentioned procedure and then to our clinic in 4 weeks from now 9. Maps were reviewed and were appropriate. PQRS measures: 1-Patient's medications are documented in the chart. 2-Tobacco use is negative, counseling given 3-Patient has not had a pneumococcal vaccine. 4-Advanced care planning discussed, patient unable to give 5-Opioid contract signed with the patient. 6-Pain positive, follow-up visit or procedure scheduled 7-Patient's blood pressure measured and documented above/ normal limits. The patient will follow up with his primary care physician. 8-Patient's weight was measured, and body mass index ABOVE the normal limits, and counseling was done. Patient instructed to follow up with PCP. 9-Patient WAS NOT identified as an unhealthy alcohol user. Controlled Substance Measures Is patient prescribed a controlled substance at discharge?: Yes When asked, does pt state using other controlled substances?: No If prescribed controlled substance>3 days was MAPS reviewed?: Yes If Rx opioid, was Start Talking consent form obtained?: Yes If opioid is for acute pain is fill amount 7 days or less?: No Was information provided regarding opioid addiction?: Yes Objective - Vital Signs Vital signs: Vital Signs Temp Pulse 85 09/26/18 12:04 Resp 16 09/26/18 12:04 BP 128/85 09/26/18 12:04 Pulse Ox 100 09/26/18 12:04 Intake & Output 09/25/18 09/26/18 09/26/18 18:59 06:59 18:59 Weight 76.204 kg
== END ==
LOC: PNWHC3 11:28
PROVIDERS: ATTEND Anesthesiology
DX: M51.16 Intervertebral disc disorders with radiculopathy, lumbar region (principal); Z79.891 Long term (current) use of opiate analgesic; Z71.6 Tobacco abuse counseling; Z79.899 Other long term (current) drug therapy
CPT/HCPCS: 99211

== ENCOUNTER 2018-10-02 07:02 | Day surgery (SDC) | payer MEDICARE ==
[2018-09-28 14:59] VITALS: BMI 22.8
[2018-10-02] MEDS ORDERED: LIDOCAINE 1% 20 ML VIAL (10MG/ML) FOR IV START INTRADERMA ONE (07:43)
[2018-10-02] MEDS ORDERED: LACTATED RINGERS 1,000 ML IV ONE (07:44)
[2018-10-02] MEDS ORDERED: LACTATED RINGERS 1,000 ML IV SCH (07:48)
[2018-10-02 07:54] VITALS: RESP 16; TEMP 97.8
[2018-10-02 07:56] LABS: Glucose,Whole Blood 79 mg/dL (75-99)
--- NOTE | 2018-10-02 08:42 | P.PCN ---
Date of Procedure: 10/02/18 Procedure(s) Performed: PREOPERATIVE DIAGNOSIS: 1-Lumbar radiculopathy 2- Lumber Degenerative Disc Diseases. POSTOPERATIVE DIAGNOSIS: 1-Lumbar radiculopathy. 2-Lumbar Degenerative Disc Diseases PROCEDURE 1. Lumbar epidural steroid injection under fluoroscopic guidance at the L4-5 level in the right paramedian approach. 2. Lumbar epidurogram. ANESTHESIA: Local with 1% lidocaine; and IV moderate sedation with Versed 2 mg and fentanyl 50 mcg EBL: Minimal PROCEDURE INDICATION: The patient with low back pain and radiculitis symptoms unresponsive to conservative treatment. Fluoroscopy was used to optimize visualization of the needle placement and to maximize safety. PROCEDURE DESCRIPTION / TECHNIQUE: The patient was seen and identified in the preoperative area. Risks, benefits, complications including but not limited to infections ,bleeding ,allergic reaction to the medications ,nerve damage and not complete pain relief , and alternatives were discussed with the patient. The patient agreed to proceed with the procedure and signed the consent. IV was started, and vital signs were s table. Patient was taken to the OR and time out was completed. The patient was placed in the prone position on procedure table and a pillow was placed under the abdomen to reduce lumbar lordosis. The lumbosacral area was prepped and draped in the usual sterile fashion with ChloraPrep.Patient was closely monitored during the procedure. Conscious sedation was used during the procedure to decre ase patients anxiety. Vital signs were monitered during the entire procedure. Using anterior-posterior fluoroscopy, the L4-5 interlaminar space was identified and the skin over this site was marked and then infiltrated with 1% lidocaine subcutaneously. Subsequently, a 20-gauge Tuohy epidural needle was inserted and advanced toward the epidural space using the Loss of resistance to air techniq ue and guided by AP and lateral fluoroscopy. The correct needle position in the epidural space was verified with the injection of 1 mL of the water soluble contrast dye IsoView 200 contrast and observing an excellent epidurogram with the epidural spread of the dye, after negative aspiration for blood and CSF and in the absence of paresthesias. Again after negative aspiration, a 6 ml mixture containing 80 mg of Depo-Medrol and 5 ml of preservative free Normal Saline was injected and a washout of epidurogram was seen. Needle was withdrawn intact, skin was cleansed, and bandages were applied. patient tolerated procedure well and was transferred to PACU in stable condition. COMPLICATIONS: None
[2018-10-02] MEDS ORDERED: IV FLUID CONTINUATION 1,000 ML IV ONE (08:58)
--- NOTE | 2018-10-02 09:04 | FL ---
EXAMINATION TYPE: FL guided pain mgmt statistic DATE OF EXAM: 10/02/2018 HISTORY: Flouroscopy time 4 seconds of fluoroscopy provided. IMPRESSION: 1. Fluoroscopy time.
[2018-10-02 09:09] VITALS: BP 123/71; PULSE 73
== END 2018-10-02 09:10 | disposition home or self-care (01) ==
LOC: ORPAIN 07:02
PROVIDERS: ATTEND Specialist
DX: M51.16 Intervertebral disc disorders with radiculopathy, lumbar region (principal); Z79.891 Long term (current) use of opiate analgesic; J30.2 Other seasonal allergic rhinitis
CPT/HCPCS: 62323; J2250; J1030; J3010; Q9966

== ENCOUNTER → 2018-10-23 | Outpatient (CLI) | payer MEDICARE ==
[2018-10-23 12:15] VITALS: BP 130/84; PULSE 59; RESP 18
--- NOTE | 2018-10-23 12:58 | P.PN ---
Subjective Progress Note Date: 10/23/18 Griffin presents for follow-up today. He has a chronic history of back pain. He has been on very high-dose medications in the past and has been coming down those medications. He reports his pain continues to be over his low back into his right leg. He reports that since we have cut down his pain medications his pain has been about the same. He's not notice a very big difference. He reports he continues to be physical therapy at this point. He is also had epidural steroid injections done recently which have significantly improved his pain. His pain is across his low back and into his right leg. He also reports that when he stands for prolonged periods of time he has pain that goes up his back to his thoracic spine. He does not report any new symptoms. Denies any side effects from the current medication regimens. He continues to work. He does chores around the house including yardwork. Objective - Vital Signs Vital signs: Vital Signs Temp Pulse 59 L 10/23/18 12:10 Resp 18 10/23/18 12:10 BP 130/84 10/23/18 12:10 Pulse Ox Intake & Output 10/22/18 10/23/18 10/23/18 18:59 06:59 18:59 Weight 77.111 kg - Exam General: Awake and alert oriented 3 no distress Respiratory exam: No audible wheezing no accessory muscle usage Cardiovascular exam: regular rate, palpable bilateral pulses, no lower extremity edema Abdominal exam: No distention nontender to palpation Cervical spine: Normal alignment, Spurling's negative, facet loading negative, Trade Mark Examiner strength is 5/5, farrar negative Lumbar spine: Loss of lumbar lordosis, normal alignment, tender to palpation over bilateral paraspinal muscles, facet loading is positive bilaterally. Straight leg raise is negative. Limited range of motion due to pain with flexion, extension and side bending. Sacroiliac joints: Nontender to palpation, ESTEPHANIA is negative, Gaenselon negative Neuro exam: Normal sensation in bilateral upper extremities, deep tendon reflexes are 2+ bilateral upper extremities. Normal sensation in bilateral lower extremities. Deep tendon reflexes are 2+ in lower extremities, right lower extremity strength is 4-5 compared to 5 out of 5 in the left. Psych exam: Cooperative, appropriate mood Assessment and Plan Assessment: #1 chronic back pain #2 chronic opioid dependence Plan: On today's visit we have discussed continuing to decrease the pain medications. He will continue physical therapy over the next 2 months. It is next visit we can discuss further decreasing the pain medication. At this point we have decreased his fentanyl patch 25 g and continue the oxycodone 10 mg 3 times per day. That gives him a total morphine equivalents of 105. A urine drug screen was taken on today's visit. We will follow-up on the results the next visit
== END ==
LOC: PNWHC3 11:42
PROVIDERS: ATTEND Hospitalist
DX: G89.29 Other chronic pain (principal); M54.9 Dorsalgia, unspecified; Z79.891 Long term (current) use of opiate analgesic; Z79.899 Other long term (current) drug therapy
CPT/HCPCS: 99211

== ENCOUNTER → 2018-12-18 | Outpatient (CLI) | payer MEDICARE ==
[2018-12-18 11:57] VITALS: BP 119/76; PULSE 73; RESP 18
--- NOTE | 2018-12-18 12:28 | P.PAINPG ---
Subjective Progress Note Date: 12/18/18 This is a follow visit for this 43 years old male with a chronic history of severe low back pain with radiation to the lower extremity, his statements with lumbar herniated disc disease and lumbar radiculopathy, with done lumbar epidural steroid injections 3, she continued to have severe low back pain with radiation to the posterior aspect of lower extremity, he is done physical therapy and so far he did 20 session of physical therapy and he will continue doing it for the next few weeks, he denies any motor or sensory deficit he denies any fever or night sweats and his currently on fentanyl patch 25 g and Percocet 10/325 every 8 hours and, and Neurontin 800 mg 3 times a day he denies any side effect of the medication he denies any excessive drowsiness and sleepiness, and he reported the current medication helping him to improve his pain, the pain mostly in the low back area and aggravated with any movement, interfering with her quality of life Objective - Vital Signs Vital signs: Vital Signs Temp Pulse 73 12/18/18 11:51 Resp 18 12/18/18 11:51 BP 119/76 12/18/18 11:51 Pulse Ox Intake & Output 12/17/18 12/18/18 12/18/18 18:59 06:59 18:59 Weight 76.204 kg - Exam Physical Examinations : -Constitutiona : Cooperative , not in acute distress . -HEENT : nech : supple , no Lymphadenopathy , normal thyroid size . eyes : no ptosis , no icterus, no photophobia . ENT : normal of hearing , normal oropharynx , no Thrush . - Respiratory : Chest clear to auscultations Bilaterally , no wheezing , no Rhonchi . - Cardiovascula : regular rate and rhythem , S1 , S2 , no S3 , no S4. - Gastrointestina : abdomen soft no tenderness , bowel sounds , no organomegally . - Genitourinary : Defferred . - neurologic : Cranial nerve II to XII intact , no focal neurological deffecit . -psychatric : alert , oriented X 3 , appropriate affect , intact judgment and insight . -Lymphatic : no Lymphadenopathy . - musculoskeltal : Cervical Spine motor stregnth in the deltoid and biceps, normal right side , normal Left side motor stregnth biceps and the wrist extensors normal right side ,normal left side . motor stregnth in the triceps muscle . normal Right side , normal Left side deep tendon reflexes normal at the biceps , normal at Brachioradialis , normal at triceps. cervical facet loading test: Positive Bilaterally Spurling test positive bilaterally. Neck distraction test positive bilaterally. Albertina sign positive bilaterally. Lumber spine moter stegnth lower extremities ,thigh and legs 5/5 Right side , 5/5 Left side deep tendon reflexes : normal Knee Jerk , normal ankle Jerk positive lumber facet Loading Test Range of motion of the lumbar spine Flexion 30 degrees, extension 10 degrees strait leg raising test , positive at 45 degree on the right side, and negative on the left side Fabere test positive RT and positive LT . mild tenderness over the Sacroiliac joint on the R and L sides Assessment and Plan Plan: Assessment and plan= chronic low back pain secondary to lumbar herniated disc disease , lumbar spondylosis with lumbar facet arthropathy . Patient continued to have severe low back pain after lumbar epidural steroid injection x3 , patient had clinical findings of lumbar spondylosis with lumbar facet arthropathy chronic and current use of high-risk medication (opioids) Patient denies any side effects of the current pain medication and the current treatment/medication helping the patient to do activity of daily living , Diagnoses, prognosis, treatment options, including but not limited to physical therapy, medication management, interventional therapies, and surgery, were discussed with the patient All the questions answered The narcotic consent was signed and patient agreed and understood the side effects and complications of opioid treatment. Patient signed the narcotic agreement, and was orally counseled, not to overuse, not to abuse, not to Divert , not tp sell pain medication, and to take it as prescribed only, Patient was counseled not to drive or operate heavy equipment while using narcotic medication, and advised not to use alcohol or any Illicit drugs while using the narcotis. understanding that lack of compliance with any of the above instructions, will likely to cause discharge from, the pain service, not to renew his narcotic prescriptions MAPS Reviwed and it was apropriate . Medication managements= patient will be given prescription refills for fentanyl patch 25 g, Percocet 10/325 every 8 hours, Neurontin 800 mg every 8 hours , with refill for 2 months Interventions= patient is a good candidate for diagnostic medial branch block lumbar area at L34, L4 5, L5-S1 2 and possible RFA Urine drug screen ordered today , Time with Patient: Less than 30 PQRS Measure Charge Sheet Measure #130: Documentation of Current Meds in Medical Chart: Patient's medications documented in chart Measure #226: Tobacco Use: Screen & Cessation Intervention: Pt not a tobacco user Measure #111: Pneumonia Vaccination: Pneumococcal vaccine NOT administered or previously given Measure #47: Advance Care Plan: Advance care planning discussed & documented, pt chose/unable to give Measure #412: Opioid Treatment Agreement: Documented signed opioid trtmnt agreemnt min once during opioid trtmnt Measure #408: Opioid Therapy Follow-up Evaluation: Patient had f/u eval minimum every 3 months during opioid therapy Measure #317: Preventitive Care & Scrn High Bld Press & F/U: Normal blood pressure, f/u not required Measure #128: Body Mass Index (BMI) Screening & Follow-up: BMI documented within normal parameters Measure #131: Pain Assessment & Follow-up: Pain positive & plan documented, Follow-up scheduled Measure #431: Unhealthy Alcohol Use Preventative Care & Scrn: Patient not identified as an unhealthy alcohol user PQRS Narrative: Smoking Status Never smoker Narcotic Agreement Date Signed 03/01/18 Blood Pressure 119/76 Pain Intensity [Right Lower 3 Back] Scale Used Numeric (1 - 10) Hx Alcohol Use (MH) Yes: OCCASIONAL USE. Home Medications: Ambulatory Orders Aspirin 162 mg PO DAILY 05/13/15 Multivitamin [Men's Multi-Vitamin] 1 tab PO DAILY 08/04/15 Verapamil HCl [Verapamil ER] 120 mg PO QAM 08/21/15 Docusate [Colace] 100 mg PO BID #60 11/23/16 Rosuvastatin Calcium 20 mg PO HS 11/23/16 Dicyclomine [Bentyl] 10 mg PO QID PRN 06/07/17 Pantoprazole Sodium 40 mg PO DAILY 06/07/17 Montelukast [Singulair] 10 mg PO HS 04/26/18 Cholecalciferol [Vitamin D3] 1,000 unit PO DAILY 08/10/18 Fluticasone/Vilanterol [Breo Ellipta 100-25 Mcg Inhaler] 1 dose INHALATION DAILY 08/10/18 Karina-Man Vit. Supplement 3 tab PO DAILY 08/10/18 Magnesium 500 mg PO DAILY 08/10/18 Hyoscyamine Sulfate [Hyoscyamine Sulfate SL] 1 tab SL QID 10/23/18 Gabapentin 800 mg PO TID 30 Days #90 tab 12/18/18 fentaNYL 25MCG/HR PATCH [Duragesic 25MCG/HR] 1 patch TRANSDERM Q72H 30 Days #10 patch 12/18/18 fentaNYL 25MCG/HR PATCH [Duragesic 25MCG/HR] 1 patch TRANSDERM Q72H 30 Days #10 patch 12/18/18 oxyCODONE HCL/ACETAMINOPHEN [Percocet 10-325 mg] 1 tab PO Q8HR PRN 30 Days #90 tab 12/18/18 oxyCODONE HCL/ACETAMINOPHEN [Percocet 10-325 mg] 1 tab PO TID PRN #90 tablet 12/18/18 Controlled Substance Measures - Controlled Substance Measures Is patient prescribed a controlled substance at discharge?: Yes When asked, does pt state using other controlled substances?: No If prescribed controlled substance>3 days was MAPS reviewed?: Yes If Rx opioid, was Start Talking consent form obtained?: Yes If opioid is for acute pain is fill amount 7 days or less?: No Was information provided regarding opioid addiction?: Yes
== END ==
LOC: PNWHC3 11:08
PROVIDERS: ATTEND Specialist
DX: G89.29 Other chronic pain (principal); M51.26 Other intervertebral disc displacement, lumbar region; M47.816 Spondylosis without myelopathy or radiculopathy, lumbar region; M46.96 Unspecified inflammatory spondylopathy, lumbar region; Z79.899 Other long term (current) drug therapy; Z79.82 Long term (current) use of aspirin; Z79.891 Long term (current) use of opiate analgesic
CPT/HCPCS: 80307; G0482; G0463; 99211

== ENCOUNTER 2018-12-31 07:42 | Day surgery (SDC) | payer MEDICARE ==
[2018-12-27 15:22] VITALS: BMI 22.8
[2018-12-31 08:33] VITALS: TEMP 97.8
[2018-12-31] MEDS ORDERED: LACTATED RINGERS 1,000 ML IV ONE (08:38)
[2018-12-31] MEDS ORDERED: LIDOCAINE 1% 20 ML VIAL (10MG/ML) FOR IV START INTRADERMA ONE (08:39)
--- NOTE | 2018-12-31 09:36 | P.PCN ---
Date of Procedure: 12/31/18 Procedure(s) Performed: PREOPERATIVE DIAGNOSIS : Lumbar spondylosis with Facet Arthropathy without myelopathy POSTOPERATIVE DIAGNOSIS: same PROCEDURE: Diagnostic lumbar medial branch block with fluoroscopy at L3, L4, L5 bilateral #1 ANESTHESIA: Local anesthetic; Versed 1 mg Surgeon: Eagle Tyler MD PROCEDURE INDICATION: Lumbar back pain without radiculopathy, not responsive to conservative management. PROCEDURE DESCRIPTION: the patient was seen and identified in the preop holding area , risks and benefits and possible complications of the procedure and alternatives were discussed with the patient, and the patient agreed to proceed with the procedure and signed the consent . IV was started , vital signs were monitored during the procedure and fluoroscopy was used to maximize the benefit and accuracy of the needle placement, and sedation was given to decrease patient anxiety. Patient was taken to the procedure room and placed in prone position. The lumbar region was prepped using chlorhexidine 2. Under strict sterile technique using AP fluoroscopy the bilateral sacral ala were identified and using ipsilateral oblique fluoroscopy ,the junction of the transverse process and the superior articulating process of the L4, L5 vertebra which corresponds to the fluoroscopy image of the eye of the Tru dog for the medial branches were identified. Subsequently, after local infiltration of skin with lidocaine 1% 0.2 mL at each level , a 25-gauge 3-1/2 inch Quincke-type needle was placed at the junction of the base of the transverse process and the superior articular process at the appropriate level as well as the sacral ala, and the needle was advanced until the periosteum contacted, needle placement confirmed with AP and oblique fluoroscopy, 0.2 mL of Isovue 200 per level was injected which revealed no vascular uptake and after negative aspiration, 0.5 mL of ropivacaine 0.5% was injected at each level and the needle subsequently removed . At the end of the procedure and the needles were removed and a bandage applied after the skin was cleaned. The patient was taken to recovery room in stable condition and monitors in the recovery room for 20-30 minutes and discharged home in stable condition after discharge criteria met and patient will follow up for repeat procedure in 2 weeks EBL: Minimal COMPLICATION: None. Comments: Patient has L5 transitional vertebra
[2018-12-31] MEDS ORDERED: IV FLUID CONTINUATION 1,000 ML IV ONE (09:42)
[2018-12-31 10:05] VITALS: BP 123/59; PULSE 64; RESP 16
--- NOTE | 2018-12-31 15:34 | FL ---
Fluoroscopy HISTORY: Pain 5 seconds fluoroscopy time supplied to the referring clinician. 3 intraoperative C-arm images docume nt the procedure. See dictated report from anesthesia.
== END 2018-12-31 10:31 | disposition home or self-care (01) ==
LOC: ORPAIN 07:42
PROVIDERS: ATTEND Anesthesiology
DX: M47.26 Other spondylosis with radiculopathy, lumbar region (principal); M51.16 Intervertebral disc disorders with radiculopathy, lumbar region; Z79.82 Long term (current) use of aspirin; Z79.891 Long term (current) use of opiate analgesic; Z79.899 Other long term (current) drug therapy
CPT/HCPCS: 64493; 64494; J2250; Q9966; 99152

== ENCOUNTER 2019-01-22 08:32 | Day surgery (SDC) | payer MEDICARE ==
[2019-01-21 10:36] VITALS: BMI 22.4
[2019-01-22] MEDS ORDERED: LACTATED RINGERS 1,000 ML IV SCH (09:15)
[2019-01-22 09:46] VITALS: RESP 16; TEMP 97.5
[2019-01-22] MEDS ORDERED: LIDOCAINE 1% 20 ML VIAL (10MG/ML) FOR IV START INTRADERMA ONE (09:49)
[2019-01-22] MEDS ORDERED: IV FLUID CONTINUATION 1,000 ML IV ONE (11:12)
--- NOTE | 2019-01-22 11:18 | P.PCN ---
Date of Procedure: 01/22/19 Procedure(s) Performed: PREOPERATIVE DIAGNOSIS : Lumbar spondylosis with Facet Arthropathy without myelopathy POSTOPERATIVE DIAGNOSIS: same PROCEDURE: Diagnostic lumbar medial branch block with fluoroscopy at mbb L3, L4, L5, bilateral ANESTHESIA: moderate sedation with 1 of versed and lidocaine 1% at the skni Surgeon: More Lozoya MD PROCEDURE INDICATION: Patient has axial back pain and has 1 diagnostic medial branch block PROCEDURE DESCRIPTION: the patient was seen and identified in the preop holding area , risks and benefits and possible complications of the procedure and alternative were discussed with the patient, and the patient agreed to proceed with the procedure and signed the consent IV was started and vital signs monitored during the procedure and fluoroscopy was used to maximize the benefit and accuracy of the needle placement, and sedation was given to decrease patient anxiety, patient was taken to the procedure room and placed in prone position vital signs monitored in the back prepped. Under strict sterile technique using a right oblique fluoroscopy ,the junction of the transverse process and the superior articulating process of the bilateral L3- 4 , L4- 5, and L5-S1 vertebra which corresponding to the fluoroscopy image of the eye of the Tru dog on the block side for the medial branches and subsequently , after local infiltration of skin and subcutaneous tissues with lidocaine 1% one mL at each level ,then one 25-gauge Quincke-type needles was placed at the junction of the base of the transverse process and the superior articular process at the appropriate level, and the needle was advanced until the periosteum contacted, needle placement confirmed with AP oblique and lateral view and after appropriate needle placement confirmed, and after negative aspiration, 0.5 mL of Marcaine 0.5% mixed with 40 mg depomedrol in divided doses was injected at each level and the needle subsequently removed. At the end of the procedure and the needles removed and a bandage applied after the skin was cleaned the cleaning solution patient taken to recovery room in stable condition and monitors in the recovery room for 20-30 minutes and discharged home in stable condition after discharge criteria met and patient will follow up with the pain clinic in 2-4 weeks EBL: Minimal COMPLICATION: None.
--- NOTE | 2019-01-22 11:24 | FL ---
EXAMINATION TYPE: FL guided pain mgmt statistic DATE OF EXAM: 01/22/2019 HISTORY: Flouroscopy time 17 seconds of fluoroscopy provided. IMPRESSION: 1. Fluoroscopy time.
[2019-01-22 11:30] VITALS: BP 119/70; PULSE 81
== END 2019-01-22 11:51 | disposition home or self-care (01) ==
LOC: ORPAIN 08:32
PROVIDERS: ATTEND Student in an Organized Health Care Education/Training Program
DX: M47.816 Spondylosis without myelopathy or radiculopathy, lumbar region (principal)
CPT/HCPCS: 64493; 64494; J2250; J1030; 99152

== ENCOUNTER → 2019-02-12 | Outpatient (CLI) | payer MEDICARE ==
[2019-02-12 13:42] VITALS: BP 131/86; PULSE 89; RESP 18
--- NOTE | 2019-02-12 16:06 | P.PAINPG ---
Subjective Progress Note Date: 02/12/19 Mr. Davey is a relatively healthy 43-year-old male on chronic opiate therapy who presents for follow-up after his diagnostic medial branch block. He states that he had greater than 50% relief with the 2 blocks. However more concerning his last urine drug screen was reviewed. He was positive for high levels of alcohol, and a metabolite of clonazepam. He does admit to drinking alcohol the day before his urine drug screen, however he denies using clonazepam. He denies any other side effects. Of concern is that he is generally healthy and is on a fentanyl patch. Otherwise he reports no new symptoms Objective - Vital Signs Vital signs: Vital Signs Temp Pulse 89 02/12/19 13:32 Resp 18 02/12/19 13:32 BP 131/86 02/12/19 13:32 Pulse Ox 99 02/12/19 13:32 Intake & Output 02/11/19 02/12/19 02/12/19 18:59 06:59 18:59 Weight 74.389 kg - Exam Vital Signs: Reviewed in EMR GENERAL: Well appearing, in no acute distress, PSYCH: Mood and affect is appropriate. Awake, alert, and oriented SKIN: Skin color, texture, turgor normal, no rashes or lesions HEENT: Normocephalic, atraumatic. EOM intact CV: No pedal edema RESP: Respirations are unlabored, no audible wheezing GI: Abdomen non-distended MUSCULOSKELETAL: Bilateral upper and lower extremity strength is normal and symmetric. No atrophy or tone abnormalities are noted. Lumbar spine: Excellent range of motion Extremities: Peripheral joint ROM is full and pain free without obvious instability or laxity in all four extremities. No edema or skin discolorations noted. Gait: Gait is anantalgic NEUR: No loss of sensation is noted. Cranial nerves are grossly intact. Assessment and Plan Assessment: Assessment: 1. Chronic opiate use 2. Lumbar spondylosis 3. 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 Explanation: Opioid and psychological risk scores were reviewed. Diagnoses, prognoses, and multiple treatment options including but not limited to physical therapy, interventional therapies, adjuvant medical therapies, narcotic medication therapies, and surgery were discussed with the patient and all questions were answered to the patient's satisfaction. 2. Opioid agreement: In place 3. Counseling: The risks with of opiates were discussed in depth with the patient. A witness, the nurse was in the room during this discussion. 4. Procedures: As we are weaning him from his opiates, we'll defer on lumbar RFA. This is because he may have increased pain with the initial lumbar RFA. However this is something we should revisit in the future. 5. Consultations: None 6. Investigations: None 7. Medications: Given his UDS which was positive for alcohol and benzodiazepines, I discussed to wean with him. He states that he did not take benzodiazepines and that his urine may have been mixed up with another individual. A repeat urine drug screen was sent today. Regardless I will wean him off his fentanyl patch. He was instructed to use up the rest of his fentanyl patches while decreasing the use of Percocet. I did refill him for one prescription of Percocet 03/21/2025 3 times a day when necessary. I did not want to completely cut him off from opiates given the withdrawals. 8. Disposition: 4 weeks to review his UDS and continue further opiate weans. , PQRS Measure Charge Sheet Measure #226: Tobacco Use: Screen & Cessation Intervention: Pt screened for tobacco use AND intervention given Measure #111: Pneumonia Vaccination: Pneumococcal vaccine NOT administered or previously given Measure #47: Advance Care Plan: Advance care planning discussed & documented, pt chose/unable to give Measure #131: Pain Assessment & Follow-up: Pain positive & plan documented, Follow-up scheduled PQRS Narrative: Smoking Status Never smoker Narcotic Agreement Date Signed 12/18/18 Blood Pressure 131/86 Pain Intensity [Right Lower 3 Back] Scale Used Numeric (1 - 10) Hx Alcohol Use (MH) Yes: OCCASIONAL USE. Home Medications: Ambulatory Orders Aspirin 162 mg PO DAILY 05/13/15 Multivitamin [Men's Multi-Vitamin] 1 tab PO DAILY 08/04/15 Verapamil HCl [Verapamil ER] 120 mg PO QAM 08/21/15 Docusate [Colace] 100 mg PO BID #60 11/23/16 Rosuvastatin Calcium 20 mg PO HS 11/23/16 Dicyclomine [Bentyl] 10 mg PO QID PRN 06/07/17 Pantoprazole Sodium 40 mg PO DAILY 06/07/17 Montelukast [Singulair] 10 mg PO HS 04/26/18 Cholecalciferol [Vitamin D3] 1,000 unit PO DAILY 08/10/18 Karina-Man Vit. Supplement 1 tab PO TID 08/10/18 Magnesium 500 mg PO DAILY 08/10/18 Hyoscyamine Sulfate [Hyoscyamine Sulfate SL] 0.125 mg PO QID PRN 10/23/18 Biotin Tab 1,000 mcg PO DAILY 02/12/19 Fluticasone/Vilanterol [Breo Ellipta 100-25 Mcg Inhaler] 1 inhalation PO QAM 02/12/19 Gabapentin 800 mg PO TID 30 Days #90 tab 02/12/19 Garlic 1 each PO DAILY 02/12/19 oxyCODONE-APAP 10-325MG [Percocet 10-325 mg] 1 tab PO TID PRN 02/12/19 Controlled Substance Measures - Controlled Substance Measures Is patient prescribed a controlled substance at discharge?: Yes When asked, does pt state using other controlled substances?: No If prescribed controlled substance>3 days was MAPS reviewed?: Yes If Rx opioid, was Start Talking consent form obtained?: Yes If opioid is for acute pain is fill amount 7 days or less?: Yes Was information provided regarding opioid addiction?: Yes
== END | disposition home or self-care (01) ==
LOC: PNWHC3 13:17
PROVIDERS: ATTEND Student in an Organized Health Care Education/Training Program
DX: R82.5 Elevated urine levels of drugs, medicaments and biological substances (principal); M47.816 Spondylosis without myelopathy or radiculopathy, lumbar region; F11.90 Opioid use, unspecified, uncomplicated; Z72.89 Other problems related to lifestyle; Z79.82 Long term (current) use of aspirin; Z79.899 Other long term (current) drug therapy
CPT/HCPCS: 80307; G0482; G0463; 99211

== ENCOUNTER 2019-02-15 10:05 | Day surgery (SDC) | payer MEDICARE ==
[2019-02-12 15:25] VITALS: BMI 21.9
[~2019-02-15 10:05] MED LIST changes: +LIDOCAINE 1% 20 ML VIAL (10MG/ML) FOR IV START INTRADERMA PRN
[2019-02-15 10:32] VITALS: RESP 16; TEMP 97
[2019-02-15] MEDS ORDERED: PROPOFOL 10 MG/ML 20 ML VIAL IV ONE (11:03)
--- NOTE | 2019-02-15 11:49 | P.PCN ---
Date of Procedure: 02/15/19 Procedure(s) Performed: BRIEF HISTORY: Patient is a 43-year-old [id number] scheduled for an elective colonoscopy as a part of intermittent rectal bleeding for the last 1 month duration. PROCEDURE PERFORMED: Colonoscopy. PREOPERATIVE DIAGNOSIS: Rectal bleeding. IV sedation per Anesthesia. PROCEDURE: After informed consent was obtained, the patient, was brought into the endoscopy unit. IV sedation was administered by Anesthesia under continuous monitoring. Digital rectal examination was normal. Initially the Olympus CF-160 flexible video colonoscope was then inserted in the rectum, gradually advanced into the cecum without any difficulty. Careful examination was performed as the scope was gradually being withdrawn. Ileocecal valve and the appendiceal orifice were visualized and appeared normal. Prep was excellent. Mucosa of the cecum, ascending colon, transverse colon, descending colon, sigmoid colon, and rectum appeared normal. Retroflexion was performed in the rectum and small internal hemorrhoids were seen. The patient tolerated the procedure well. IMPRESSION: Normal-appearing colon from rectum to cecum with no evidence of colorectal neoplasia. Small internal hemorrhoids RECOMMENDATIONS: Findings of this examination were discussed with the patient as well as his family. He was advised to be a high-fiber diet. He can have a repeat screening colonoscopy at age 52..
[2019-02-15 11:56] VITALS: PULSE 56
[2019-02-15 12:00] VITALS: BP 101/64
== END 2019-02-15 12:08 | disposition home or self-care (01) ==
LOC: ORWHC2ENDO 10:05
PROVIDERS: ATTEND Internal Medicine Gastroenterology
DX: K64.8 Other hemorrhoids (principal); K62.5 Hemorrhage of anus and rectum; I49.9 Cardiac arrhythmia, unspecified; E78.5 Hyperlipidemia, unspecified; Z86.711 Personal history of pulmonary embolism; E07.9 Disorder of thyroid, unspecified; J45.909 Unspecified asthma, uncomplicated; M48.00 Spinal stenosis, site unspecified; K58.9 Irritable bowel syndrome, unspecified; Z79.51 Long term (current) use of inhaled steroids; Z79.82 Long term (current) use of aspirin; Z79.891 Long term (current) use of opiate analgesic; Z79.899 Other long term (current) drug therapy; Z88.5 Allergy status to narcotic agent; Z91.048 Other nonmedicinal substance allergy status; R53.1 Weakness
CPT/HCPCS: 45378; J2704